=== PATIENT | male | born 1985 | race Caucasian/White ===

== ENCOUNTER 2016-05-23 13:47 | Emergency (ER) | payer MEDICAID, OTHER ==
[2016-05-23] MEDS ORDERED: CHLORPROMAZINE HCL 25 MG TABLET PO ONE (14:39)
--- NOTE | 2016-05-23 14:40 | ER Document Report ---
ED Medical Screen (RME) - General Chief Complaint: Chest Pain Stated Complaint: HICCUPS Notes: This 30-year-old male patient brought to emergency room for pickup since sometime yesterday. He is beginning to have some chest discomfort on the left side from old a hiccuping. He does have a past history of cyclic vomiting, psychiatric history, and is usually positive for marijuana when he is tested. I have greeted and performed a rapid initial assessment of this patient. A comprehensive ED assessment and evaluation of the patient, analysis of test results and completion of the medical decision making process will be conducted by additional ED providers. TRAVEL OUTSIDE OF THE [place] IN LAST 30 DAYS: No - Related Data Allergies/Adverse Reactions: amitriptyline HCl [From Elavil] Adverse Reaction (Severe, Verified 05/23/16 14: 04) Wakefulness for several days droperidol [Droperidol] Adverse Reaction (Intermediate, Verified 05/23/16 14:04) "makes me feel bad" metoclopramide HCl [From Reglan] Adverse Reaction (Verified 05/23/16 14:04) morphine [Morphine] Adverse Reaction (Verified 05/23/16 14:04) Past Medical History - Social History Family history: DM, Other - dementia grandmother Neurological Medical History: Reports: Hx Migraine. Denies: Hx Seizures Renal/ Medical History: Denies: Hx Peritoneal Dialysis GI Medical History: Reports: Hx Gastroesophageal Reflux Disease Musculoskeltal Medical History: Reports Hx Musculoskeletal Trauma - collar bone Psychiatric Medical History: Reports: Hx Anxiety, Hx Depression Traumatic Medical History: Reports: Hx Fractures - Immunizations Immunizations up to date: Yes Hx Diphtheria, Pertussis, Tetanus Vaccination: Yes Physical Exam - Vital signs Vitals: Temp Pulse Resp BP Pulse Ox 97.6 F 87 18 108/87 H 100 05/23/16 14:06 05/23/16 14:06 05/23/16 14:06 05/23/16 14:06 05/23/16 14:06 Course - Vital Signs Vital signs: Temp Pulse Resp BP Pulse Ox 98.2 F 88 18 180/116 H 100 05/23/16 15:26 05/23/16 15:26 05/23/16 15:26 05/23/16 15:26 05/23/16 15:26 Doctor's Discharge - Discharge Clinical Impression: Intractable hiccups Condition: Stable Disposition: HOME, SELF-CARE Additional Instructions: Hiccups: Hiccups are contractions of the diaphragm muscle. They usually occur without warning, but they may follow over-eating or drinking large amounts of soda. Hiccups are usually harmless. We don't know why some people have prolonged bouts of hiccups. Most of the time, they will eventually go away without treatment. Medication can be prescribed to help control hiccups. If hiccups persist, you'll need a medical work-up to see if there's any underlying illness. Return if there's any significant change, such as chest pain , abdominal pain, vomiting, or fever. TAKE THE MEDICATION PRESCRIBED. REST. FOLLOW UP WITH YOUR DOCTOR IF NOT IMPROVING. RETURN TO THE EMERGENCY ROOM IF ANY NEW OR WORSENING SYMPTOMS. Prescriptions: Benzonatate [Tessalon Perles 100 mg Capsule] 100 mg PO ASDIR PRN #20 capsule PRN Reason: Chlorpromazine HCl [Thorazine 25 Mg Tablet] 25 mg PO Q6 PRN #20 tablet PRN Reason:
[2016-05-23] MEDS ORDERED: MAG HYDROX/AL HYDROX/SIMETH SUSP 30 ML UDCUP PO ONE (14:47)
[2016-05-23] MEDS ORDERED: LIDOCAINE 2% VISCOUS SOLN 20 ML UDCUP PO ONE (14:47)
[2016-05-23] MEDS ORDERED: ONDANSETRON 4 MG TAB.RAPDIS PO ONE (15:05)
[2016-05-23 15:27] VITALS: BP 180/116
--- NOTE | 2016-05-23 20:07 | ER Document Report ---
ED General - General Chief Complaint: Chest Pain Stated Complaint: HICCUPS Information source: Patient, Parent, [facility] Records Notes: This 30-year-old male patient comes emergency room complaining of hiccups since yesterday. He has never had this problem before. He has been seen in the past for cyclical vomiting, he is always positive for marijuana when tested. TRAVEL OUTSIDE OF THE [place] IN LAST 30 DAYS: No - Related Data Allergies/Adverse Reactions: amitriptyline HCl [From Elavil] Adverse Reaction (Severe, Verified 05/23/16 14: 04) Wakefulness for several days droperidol [Droperidol] Adverse Reaction (Intermediate, Verified 05/23/16 14:04) "makes me feel bad" metoclopramide HCl [From Reglan] Adverse Reaction (Verified 05/23/16 14:04) morphine [Morphine] Adverse Reaction (Verified 05/23/16 14:04) Past Medical History - General Information source: Patient, Parent, [facility] Records - Social History Smoking Status: Never Smoker Cigarette use (# per day): No Chew tobacco use (# tins/day): No Smoking Education Provided: No Frequency of alcohol use: None Drug Abuse: Marijuana Occupation: unemployed Lives with: Parents Family History: None, Reviewed & Not Pertinent Patient has suicidal ideation: No Patient has homicidal ideation: No - Past Medical History Cardiac Medical History: Reports: None Pulmonary Medical History: Reports: None EENT Medical History: Reports: None Neurological Medical History: Reports: Hx Migraine Endocrine Medical History: Reports: None Renal/ Medical History: Reports: None GI Medical History: Reports: Hx Gastroesophageal Reflux Disease Musculoskeltal Medical History: Reports Hx Musculoskeletal Trauma - collar bone Psychiatric Medical History: Reports: Hx Anxiety, Hx Depression Traumatic Medical History: Reports: Hx Fractures Surgical Hx: Negative - Immunizations Immunizations up to date: Yes Hx Diphtheria, Pertussis, Tetanus Vaccination: Yes Review of Systems - Review of Systems Constitutional: No symptoms reported EENT: No symptoms reported Cardiovascular: No symptoms reported Respiratory: No symptoms reported Gastrointestinal: See HPI Genitourinary: No symptoms reported Musculoskeletal: No symptoms reported Skin: No symptoms reported Hematologic/Lymphatic: No symptoms reported Neurological/Psychological: No symptoms reported Physical Exam - Vital signs Vitals: Temp Pulse Resp BP Pulse Ox 97.6 F 87 18 108/87 H 100 05/23/16 14:06 05/23/16 14:06 05/23/16 14:06 05/23/16 14:06 05/23/16 14:06 Interpretation: Normal - General General appearance: Alert In distress: Mild - Patient is uncomfortable due to incessant hiccups - HEENT Head: Normocephalic, Atraumatic Eyes: Normal Pupils: PERRL - Respiratory Respiratory status: No respiratory distress Breath sounds: Normal - Cardiovascular Rhythm: Regular - Abdominal Inspection: Healed incision Bowel sounds: Normal Tenderness: Other - Some epigastric tenderness - Back Back: Normal - Extremities General upper extremity: Normal inspection General lower extremity: Normal inspection - Neurological Neuro grossly intact: Yes - Psychological Associated symptoms: Normal affect, Normal mood - Skin Skin Temperature: Warm Skin Moisture: Dry Skin Color: Normal Course - Re-evaluation Re-evalutation: 05/23/16 20:12 The patient's blood pressure was found to be quite elevated, however reviewing the prior records shows when he is in pain, vomiting, or in this case the hiccuping his blood pressure is always been quite high and then comes back down to normal and he becomes symptom-free. For this reason we will not treat the blood pressure today. He did become a little drowsy, hiccups did improve slightly after the by mouth Thorazine. He and the mother has elected to go home and we will try Thorazine and Tessalon Perles at home to control his hiccups. - Vital Signs Vital signs: Temp Pulse Resp BP Pulse Ox 98.2 F 88 18 180/116 H 100 05/23/16 15:26 05/23/16 15:26 05/23/16 15:26 05/23/16 15:26 05/23/16 15:26 Discharge - Discharge Clinical Impression: Intractable hiccups Condition: Stable Disposition: HOME, SELF-CARE Additional Instructions: Hiccups: Hiccups are contractions of the diaphragm muscle. They usually occur without warning, but they may follow over-eating or drinking large amounts of soda. Hiccups are usually harmless. We don't know why some people have prolonged bouts of hiccups. Most of the time, they will eventually go away without treatment. Medication can be prescribed to help control hiccups. If hiccups persist, you'll need a medical work-up to see if there's any underlying illness. Return if there's any significant change, such as chest pain , abdominal pain, vomiting, or fever. TAKE THE MEDICATION PRESCRIBED. REST. FOLLOW UP WITH YOUR DOCTOR IF NOT IMPROVING. RETURN TO THE EMERGENCY ROOM IF ANY NEW OR WORSENING SYMPTOMS. Prescriptions: Benzonatate [Tessalon Perles 100 mg Capsule] 100 mg PO ASDIR PRN #20 capsule PRN Reason: Chlorpromazine HCl [Thorazine 25 Mg Tablet] 25 mg PO Q6 PRN #20 tablet PRN Reason:
== END 2016-05-23 15:31 | disposition home or self-care (01) ==
LOC: ER 13:47
DX: R06.6 Hiccough (principal); R07.9 Chest pain, unspecified; F12.10 Cannabis abuse, uncomplicated
CPT/HCPCS: 99283; J3490 ×2; S0119

== ENCOUNTER 2016-06-11 19:41 | Emergency (ER) | payer SELFPAY ==
[2016-06-11 20:09] LABS: ABSOLUTE BASOPHILS # (AUTO) 0.1 10^3/uL (0.0-0.2); ABSOLUTE EOSINOPHILS # (AUTO) 0.1 10^3/uL (0.0-0.6); ABSOLUTE LYMPHOCYTES (AUTO) 1.7 10^3/uL (0.5-4.7); ABSOLUTE MONOCYTES (AUTO) 0.6 10^3/uL (0.1-1.4); ABSOLUTE NEUT (AUTO) 3.9 10^3/uL (1.7-8.2); BASOPHILS % (AUTO) 0.9 % (0-2); EOSINOPHILS % (AUTO) 1.7 % (0-6); HEMATOCRIT 43.1 % (37.9-51.0); HEMOGLOBIN 14.7 g/dL (13.5-17.0); LYMPHOCYTES % (AUTO) 26.6 % (13-45); MEAN CORPUSCULAR HGB CONC 34.1 g/dL (32.0-36.0); MEAN CORPUSCULAR VOLUME 88 fl (80-97); MONOCYTES % (AUTO) 9.7 % (3-13); RED CELL DISTRIBUTION WIDTH 12.9 % (11.5-14.0); SEGMENTED NEUTROPHILS % (AUTO) 61.1 % (42-78); WHITE BLOOD COUNT 6.3 10^3/uL (4.0-10.5)
--- NOTE | 2016-06-11 20:17 | ER Document Report ---
ED Psych Disorder / Suicide - General Chief Complaint: Overdose Stated Complaint: POSSIBLE OVERDOSE Time seen by provider: 20:16 Mode of Arrival: Medic Information source: Patient TRAVEL OUTSIDE OF THE [place] IN LAST 30 DAYS: No - HPI Patient complains to provider of: Overdose Onset: Yesterday Onset was: Cannot confirm Suicide Risk Factors: Depressed, Lack of social support, Male, Schizophrenia Situational problems related to: Daughter, Spouse Suicide Attempt Method: Overdose Normal mood: No Associated symptoms: Depressed, Flat affect, Tearful Notes: Patient is a 31-year-old male who was brought to the emergency room by EMS after parents called for overdose, patient reports that he overdosed on approximately 45 Ativan over the past 24 hours, he states it was an effort to try to sleep and that he didn't care how long he slept, he did acknowledge that it was a significant amount of Ativan to take for sleeping, he reports that yesterday evening around 11 PM he took 40 Ativan 1 mg tablets, he slept until approximately 5 AM when he took 5 more, when he came out of his room his mother apparently noticed that he was not acting right and called EMS, patient reports a history of schizophrenia and PTSD, states approximately 4 months ago he took his daughter somewhere, and was accused of kidnapping his daughter, he was put in residential for approximately one month, while awaiting trial and states that the charges were dropped, then he was placed in 2 other hospitals for at least one month period of time for treatment and at that point in time he was diagnosed with PTSD and schizophrenia - Related Data Allergies/Adverse Reactions: amitriptyline HCl [From Elavil] Adverse Reaction (Severe, Verified 05/23/16 14: 04) Wakefulness for several days droperidol [Droperidol] Adverse Reaction (Intermediate, Verified 05/23/16 14:04) "makes me feel bad" metoclopramide HCl [From Reglan] Adverse Reaction (Verified 05/23/16 14:04) morphine [Morphine] Adverse Reaction (Verified 05/23/16 14:04) Home Medications: Current Home Medications Benztropine Mesylate 1 mg PO BID 06/11/16 [History] Ibuprofen 600 mg PO BID PRN 06/11/16 [History] Lorazepam 1 mg PO BID PRN 06/11/16 [History] Omeprazole 20 mg PO QAM 06/11/16 [History] Trazodone HCl 50 mg PO QHS PRN 06/11/16 [History] Trazodone HCl 100 mg PO QHS PRN 06/11/16 [History] Past Medical History - General Information source: Patient - Social History Smoking Status: Never Smoker Family History: None, Reviewed & Not Pertinent Neurological Medical History: Reports: Hx Migraine. Denies: Hx Seizures Renal/ Medical History: Denies: Hx Peritoneal Dialysis GI Medical History: Reports: Hx Gastroesophageal Reflux Disease Musculoskeltal Medical History: Reports Hx Musculoskeletal Trauma - collar bone Psychiatric Medical History: Reports: Hx Anxiety, Hx Depression Traumatic Medical History: Reports: Hx Fractures - Immunizations Immunizations up to date: Yes Hx Diphtheria, Pertussis, Tetanus Vaccination: Yes Review of Systems - Review of Systems Constitutional: No symptoms reported EENT: No symptoms reported Cardiovascular: No symptoms reported Respiratory: No symptoms reported Gastrointestinal: No symptoms reported Genitourinary: No symptoms reported Male Genitourinary: No symptoms reported Musculoskeletal: No symptoms reported Skin: No symptoms reported Hematologic/Lymphatic: No symptoms reported Neurological/Psychological: See HPI -: Yes All other systems reviewed and negative Physical Exam - Vital signs Vitals: Pulse Ox 96 06/11/16 19:50 Interpretation: Normal - General General appearance: Appears well, Alert - HEENT Head: Normocephalic, Atraumatic Eyes: Normal Pupils: PERRL - Respiratory Respiratory status: No respiratory distress Chest status: Nontender Breath sounds: Normal Chest palpation: Normal - Cardiovascular Rhythm: Regular Heart sounds: Normal auscultation Murmur: No - Abdominal Inspection: Normal Distension: No distension Bowel sounds: Normal Tenderness: Nontender Organomegaly: No organomegaly - Back Back: Normal, Nontender - Extremities General upper extremity: Normal inspection, Nontender, Normal color, Normal ROM , Normal temperature General lower extremity: Normal inspection, Nontender, Normal color, Normal ROM , Normal temperature, Normal weight bearing. No: Fernandez's sign - Neurological Neuro grossly intact: Yes Cognition: Normal Orientation: AAOx4 Bartlett Coma Scale Eye Opening: Spontaneous Bartlett Coma Scale Verbal: Oriented Anderson Coma Scale Motor: Obeys Commands Bartlett Coma Scale Total: 15 Speech: Normal Motor strength normal: LUE, RUE, LLE, RLE Sensory: Normal - Psychological Associated symptoms: Depressed, Flat affect - Skin Skin Temperature: Warm Skin Moisture: Dry Skin Color: Normal Course - Re-evaluation Re-evalutation: 06/12/16 02:59 Patient with ongoing depression related to his current situation with his and daughter leaving him approximately 3 months ago, apparently he took anywhere from 45-63 1 mg Ativan over a 24-hour period, EMS reports 63, patient reports 45, either way patient has been placed on IVC paper work for further evaluation and treatment by mental health team, is otherwise medically stable for transfer or discharge, poison control has been contacted - Vital Signs Vital signs: Temp Pulse Resp BP Pulse Ox 18 107/75 96 06/12/16 02:01 06/12/16 02:00 06/11/16 22:01 - Laboratory Result Diagrams: 06/11/16 19:50 06/11/16 19:50 Laboratory results interpreted by me: 06/11/16 19:50 Calcium 10.5 H AST 16 L Salicylates < 1.0 L Acetaminophen < 10 L - EKG Interpretation by [place] EKG shows normal: Sinus rhythm Rate: Normal Rhythm: NSR Discharge - Discharge Clinical Impression: Drug overdose Qualifiers: Encounter type: initial encounter Injury intent: undetermined intent Qualified Code(s): T50.904A - Poisoning by unspecified drugs, medicaments and biological substances, undetermined, initial encounter Condition: Stable Disposition: PSYCH HOSP/UNIT
[2016-06-11 20:19] LABS: ALANINE AMINOTRANSFERASE 22 U/L (21-72); ALBUMIN 4.9 g/dL (3.5-5.0); ALKALINE PHOSPHATASE 52 U/L (38-126); ANION GAP 15 (5-19); ASPARTATE AMINO TRANSFERASE 16 U/L (17-59); BILIRUBIN,DIRECT 0.3 mg/dL (0.0-0.4); BILIRUBIN,TOTAL 0.8 mg/dL (0.2-1.3); BLOOD UREA NITROGEN 10 mg/dL (7-20); CALCIUM 10.5 mg/dL (8.4-10.2); CARBON DIOXIDE 27 mmol/L (22-30); CHLORIDE 102 mmol/L (98-107); CREATININE RESULT 1.07 mg/dL (0.52-1.25); GLUCOSE 107 mg/dL (75-110); SODIUM 143.6 mmol/L (137-145); TOTAL PROTEIN 7.7 g/dL (6.3-8.2)
[2016-06-11 20:21] LABS: ALCOHOL < 10 mg/dL (NONE DETECTED)
[2016-06-11 20:46] LABS: APPEARANCE,URINE SLIGHTLY-CLOUDY; BILIRUBIN,URINE NEGATIVE (NEGATIVE); GLUCOSE, URINE NEGATIVE (NEGATIVE); KETONES,URINE NEGATIVE (NEGATIVE); LEUKOCYTE ESTERASE,URINE NEGATIVE (NEGATIVE); NITRITE,URINE NEGATIVE (NEGATIVE); PROTEIN,URINE NEGATIVE (NEGATIVE); URINE SPECIFIC GRAVITY 1.011; UROBILINOGEN,URINE NEGATIVE mg/dL (<2.0)
[2016-06-11 21:05] LABS: URINE BARBITURATES SCREEN NEGATIVE; URINE METHADONE SCREEN NEGATIVE; URINE OPIATES LOW NEGATIVE; URINE PHENCYCLIDINE SCREEN NEGATIVE
--- NOTE | 2016-06-11 22:50 | EKG REPORT ---
SEVERITY:- NORMAL ECG - SINUS RHYTHM : Confirmed by: Lali Robles 11-Jun-2016 22:49:36
--- NOTE | 2016-06-12 10:31 | ER Document Report ---
Doctor's Note Notes: 06/12/16 10:30 Medical rounds: Chart reviewed and patient interviewed briefly. Patient denies any somatic complaints. Vital signs are satisfactory. Laboratory results satisfactory. He is alert, oriented, and cooperative. He is medically stable pending evaluation by psychosocial team.
[2016-06-12] MEDS ORDERED: LANSOPRAZOLE 30 MG TAB.RAP.DR PO ONE (20:35)
--- NOTE | 2016-06-12 21:31 | ER Document Report ---
Doctor's Note Notes: 06/12/16 21:29 Reevaluation: Patient is calm and cooperative, verbalizes no complaints. Earlier today he did complain to the nurse of some heartburn symptoms and was subsequently medicated with Prevacid. Chart has been reviewed. Vital signs are stable. Any signs of toxicity from overdose have long since resolved. The patient is considered medically stable for discharge or transfer, depending on recommendations by the psychosocial team.
[2016-06-12] MEDS ORDERED: CLONIDINE HCL 0.2 MG TABLET PO SCH (22:00)
[2016-06-12] MEDS ORDERED: VENLAFAXINE HCL 37.5 MG CAP.SR.24H PO SCH (22:00)
[2016-06-12] MEDS ORDERED: BUSPIRONE HCL 10 MG TABLET PO SCH (22:00)
[2016-06-13] MEDS ORDERED: BUSPIRONE HCL 10 MG TABLET PO SCH (08:00)
--- NOTE | 2016-06-13 09:32 | ER Document Report ---
Doctor's Note Notes: 06/13/16 09:31 Patient is easily aroused, without complaints at this time. This is a 31-year-old male initially brought into the emergency room as a potential overdose with benzodiazepines in the setting of depression. Patient is waiting for psychiatric evaluation. The patient's labs have been stable. The patient's vital signs of been stable.EKG shows normal sinus rhythm with a ventricular rate of 88, no acute ST-T wave changes.The plan is for transfer to [facility]. 06/13/16 09:32 06/13/16 10:55
[2016-06-13 11:52] VITALS: BP 114/71
== END 2016-06-13 11:59 ==
LOC: ER 19:41
DX: T42.4X1A Poisoning by benzodiazepines, accidental (unintentional), initial encounter (principal); F32.9 Major depressive disorder, single episode, unspecified; Z88.6 Allergy status to analgesic agent; F43.10 Post-traumatic stress disorder, unspecified; F20.9 Schizophrenia, unspecified; R12 Heartburn
CPT/HCPCS: 93005; 99285; 36415; 80307 ×4; 85025; 80053; 81001; 93010; J3490

== ENCOUNTER 2016-08-28 18:29 | Inpatient (IN) | payer SELFPAY ==
--- NOTE | 2016-08-28 18:44 | ER Document Report ---
ED General - General Mode of Arrival: Medic Information source: Patient, Emergency Med Personnel TRAVEL OUTSIDE OF THE [place] IN LAST 30 DAYS: No - HPI Onset: This afternoon - Refer to HPI notes <TORIN RIVER - Last Filed: 08/28/16 21:48> <TONY GATES - Last Filed: 08/29/16 04:27> - General Stated Complaint: POSSIBLE OVERDOSE Time Seen by Provider: 08/28/16 18:42 Notes: Patient is a 31-year-old male presenting to the emergency department for altered mental status. Patient's mother told EMS that the patient was acting funny and then she went and checked her medications and noticed she was missing 40 Xanax. Patient's mother gave him 1200 mg of charcoal around 1600 this afternoon and contacted EMS. Patient presents with slurred speech and unclear speech pattern. Patient is talking about "falling through a tunnel in the sand. " Patient states that he sees a psychiatrist. Patient states he has not had any food today. Patient did not call his psychiatrist medications he is taking. Patient does not answer questions very well and is a poor historian. ( TORIN RIVER) - Related Data Allergies/Adverse Reactions: amitriptyline HCl [From Elavil] Adverse Reaction (Severe, Verified 05/23/16 14: 04) Wakefulness for several days droperidol [Droperidol] Adverse Reaction (Intermediate, Verified 05/23/16 14:04) "makes me feel bad" metoclopramide HCl [From Reglan] Adverse Reaction (Verified 05/23/16 14:04) morphine [Morphine] Adverse Reaction (Verified 05/23/16 14:04) Home Medications: Current Home Medications Benztropine Mesylate 1 mg PO DAILY 08/28/16 [History] Ibuprofen 1 tab PO DAILY PRN 08/28/16 [History] Omeprazole 1 tab PO QAM 08/28/16 [History] Prazosin HCl 1 tab PO DAILY 08/28/16 [History] Past Medical History - General Information source: [facility] Records - Social History Smoking Status: Unknown if Ever Smoked Family History: None Neurological Medical History: Reports: Hx Migraine GI Medical History: Reports: Hx Gastroesophageal Reflux Disease Musculoskeltal Medical History: Reports Hx Musculoskeletal Trauma - collar bone Psychiatric Medical History: Reports: Hx Anxiety, Hx Depression, Hx Schizophrenia Traumatic Medical History: Reports: Hx Fractures Surgical Hx: Negative - Immunizations Immunizations up to date: Yes Hx Diphtheria, Pertussis, Tetanus Vaccination: Yes <PRADEEPGLADIS DUBONINE - Last Filed: 08/28/16 21:48> Review of Systems - Review of Systems Constitutional: No symptoms reported EENT: No symptoms reported Cardiovascular: No symptoms reported Respiratory: No symptoms reported Gastrointestinal: See HPI Genitourinary: No symptoms reported Male Genitourinary: No symptoms reported Musculoskeletal: No symptoms reported Skin: No symptoms reported Hematologic/Lymphatic: No symptoms reported Neurological/Psychological: See HPI -: Yes All other systems reviewed and negative <TORIN RIVER - Last Filed: 08/28/16 21:48> Physical Exam <TORIN RIVER - Last Filed: 08/28/16 21:48> <TONY GATES - Last Filed: 08/29/16 04:27> - Vital signs Vitals: Resp Pulse Ox 29 H 95 08/28/16 18:52 08/28/16 18:52 Resp Pulse Ox 29 H 95 08/28/16 18:52 08/28/16 18:52 (TORIN RIVER) - Notes Notes: GENERAL: Alert, clear speech pattern, patient does not make eye contact, blood noted on the bed sheet. Mild distress. HEAD: Normocephalic, atraumatic. EYES: Appear normal. Pupils are mid and dilated. ENT: Moist mucus membranes, tongue midline. NECK: Full range of motion. Supple. Trachea midline. LUNGS: Clear to auscultation bilaterally, no wheezes, rales, or rhonchi. No respiratory distress. HEART: Regular rate and rhythm. No murmurs, gallops, or rubs. ABDOMEN: Soft, non-tender. Non-distended. Normal bowel sounds. EXTREMITIES: Moves all 4 extremities spontaneously. Normal strength. No edema. NEUROLOGICAL: Alert and oriented x3. Unclear speech pattern. Slurred speech. No focal neurological deficits. PSYCH: Normal affect, normal mood. SKIN: Warm, dry, normal turgor. No rashes or lesions noted. . (TORIN RIVER) Course - Laboratory Result Diagrams: 08/28/16 19:09 08/28/16 19:09 - Consults Dr. Padilla Time consulted: 20:45 <TORIN RIVER - Last Filed: 08/28/16 21:48> - Laboratory Result Diagrams: 08/28/16 19:09 08/28/16 19:09 <TONY GATES - Last Filed: 08/29/16 04:27> - Vital Signs Vital signs: Temp Pulse Resp BP Pulse Ox 97.7 F 93 24 H 136/89 H 95 08/29/16 03:47 08/29/16 03:47 08/29/16 04:00 08/29/16 03:47 08/29/16 04:00 - Laboratory Laboratory results interpreted by me: 08/28/16 08/28/16 19:09 19:09 RBC 4.30 L Hgb 12.7 L Hct 37.7 L Eosinophils % 8.8 H Absolute Eosinophils 0.7 H BUN 5 L Salicylates < 1.0 L Acetaminophen < 10 L - Consults Dr. Padilla Reason for consultation: 08/28/16 20:[address] Padilla to discuss patient. He will be admitted to ICU. (TORIN RIVER) Critical Care Note - Critical Care Note Total time excluding time spent on procedures (mins): 65 <TOYN GATES - Last Filed: 08/29/16 04:27> Discharge <TORIN RIVER - Last Filed: 08/28/16 21:48> - Discharge Admitting Provider: Hospitalist Unit Admitted: ICU <TONY GATES - Last Filed: 08/29/16 04:27> - Discharge Clinical Impression: Acute drug overdose Qualifiers: Encounter type: initial encounter Injury intent: undetermined intent Qualified Code(s): T50.904A - Poisoning by unspecified drugs, medicaments and biological substances, undetermined, initial encounter Condition: Stable Disposition: ADMITTED INPATIENT Scribe Attestation: 08/28/16 20:50 I personally performed the services described in the documentation reviewed the documentation recorded by my scribe in my presence and it accurately and completely records my words and actions (TONY GATES) Scribe Documentation - Scribe Written by Gaurav:: Gaurav Lemus, 08/28/2016 21:47 acting as scribe for :: Drew <TORIN RIVER - Last Filed: 08/28/16 21:48>
[2016-08-28 19:23] LABS: ABSOLUTE EOSINOPHILS # (AUTO) 0.7 10^3/uL (0.0-0.6); ABSOLUTE LYMPHOCYTES (AUTO) 1.9 10^3/uL (0.5-4.7); ABSOLUTE MONOCYTES (AUTO) 0.8 10^3/uL (0.1-1.4); ABSOLUTE NEUT (AUTO) 4.1 10^3/uL (1.7-8.2); BASOPHILS % (AUTO) 0.5 % (0-2); EOSINOPHILS % (AUTO) 8.8 % (0-6); HEMATOCRIT 37.7 % (37.9-51.0); HEMOGLOBIN 12.7 g/dL (13.5-17.0); HGB HCT DIFFERENCE 0.4; LYMPHOCYTES % (AUTO) 24.9 % (13-45); MEAN CORPUSCULAR HEMOGLOBIN 29.5 pg (27.0-33.4); MEAN CORPUSCULAR HGB CONC 33.6 g/dL (32.0-36.0); MEAN CORPUSCULAR VOLUME 88 fl (80-97); MONOCYTES % (AUTO) 11.1 % (3-13); RED CELL DISTRIBUTION WIDTH 13.8 % (11.5-14.0); SEGMENTED NEUTROPHILS % (AUTO) 54.7 % (42-78); WHITE BLOOD COUNT 7.5 10^3/uL (4.0-10.5)
[2016-08-28 19:33] LABS: ALANINE AMINOTRANSFERASE 48 U/L (21-72); ALBUMIN 3.8 g/dL (3.5-5.0); ALKALINE PHOSPHATASE 77 U/L (38-126); ANION GAP 9 (5-19); ASPARTATE AMINO TRANSFERASE 30 U/L (17-59); BILIRUBIN,DIRECT 0.2 mg/dL (0.0-0.4); BILIRUBIN,TOTAL 0.4 mg/dL (0.2-1.3); BLOOD UREA NITROGEN 5 mg/dL (7-20); CALCIUM 9.5 mg/dL (8.4-10.2); CARBON DIOXIDE 27 mmol/L (22-30); CHLORIDE 105 mmol/L (98-107); CREATININE RESULT 0.98 mg/dL (0.52-1.25); GLUCOSE 83 mg/dL (75-110); POTASSIUM 4.3 mmol/L (3.6-5.0); SODIUM 141.2 mmol/L (137-145); TOTAL PROTEIN 6.3 g/dL (6.3-8.2)
[2016-08-28 19:35] LABS: ALCOHOL < 10 mg/dL (NONE DETECTED)
--- NOTE | 2016-08-28 19:38 | RADIOLOGY REPORT (SQ) ---
EXAM DESCRIPTION: CHEST PA/LAT COMPLETED DATE/TIME: 08/28/2016 7:24 pm REASON FOR STUDY: ams COMPARISON: None. EXAM PARAMETERS: NUMBER OF VIEWS: two views TECHNIQUE: Digital Frontal and Lateral radiographic views of the chest acquired. RADIATION DOSE: NA LIMITATIONS: none FINDINGS: LUNGS AND PLEURA: No opacities, masses or pneumothorax. No pleural effusion. MEDIASTINUM AND HILAR STRUCTURES: No masses or contour abnormalities. HEART AND VASCULAR STRUCTURES: Heart normal size. No evidence for failure. BONES: No acute findings. HARDWARE: None in the chest. OTHER: No other significant finding. IMPRESSION: NO SIGNIFICANT RADIOGRAPHIC FINDING IN THE CHEST. TECHNICAL DOCUMENTATION: JOB ID: [id number] [employer]- All Rights Reserved
--- NOTE | 2016-08-28 19:39 | RADIOLOGY REPORT (SQ) ---
EXAM DESCRIPTION: CT HEAD WITHOUT COMPLETED DATE/TIME: 08/28/2016 7:23 pm REASON FOR STUDY: ams COMPARISON: None. TECHNIQUE: Axial images acquired through the brain without intravenous contrast. Images reviewed wi th bone, brain and subdural windows. Images stored on PACS. All CT scanners at this facility use dose modulation, iterative reconstruction, and/or weight based d osing when appropriate to reduce radiation dose to as low as reasonably achievable (ALARA). [facility]: Dose Right [facility]: CareDose [facility]: Dose Right [facility]: Teradose 4D [facility]: Smart Sush.io RADIATION DOSE: Up-to-date CT equipment and radiation dose reduction techniques were employed. CTDIv ol: 64.6 mGy. DLP: 1163 mGy-cm. mGy. LIMITATIONS: None. FINDINGS: VENTRICLES: Normal size and contour. CEREBRUM: No masses. No hemorrhage. No midline shift. Normal knapp/white matter differentiation. N o evidence for acute infarction. CEREBELLUM: No masses. No hemorrhage. No alteration of density. No evidence for acute infarction. EXTRAAXIAL SPACES: No fluid collections. No masses. ORBITS AND GLOBE: No intra- or extraconal masses. Normal contour of globe without masses. CALVARIUM: No fracture. PARANASAL SINUSES: No fluid or mucosal thickening. SOFT TISSUES: No mass or hematoma. OTHER: No other significant finding. IMPRESSION: NORMAL BRAIN CT WITHOUT CONTRAST. TECHNICAL DOCUMENTATION: JOB ID: [id number] Quality ID # [id number]: Final reports with documentation of one or more dose reduction techniques (e.g., Au tomated exposure control, adjustment of the mA and/or kV according to patient size, use of iterative reconstruction technique) 2010 [employer]- All Rights Reserved
[2016-08-28 20:39] LABS: URINE BARBITURATES SCREEN NEGATIVE; URINE METHADONE SCREEN NEGATIVE; URINE OPIATES LOW NEGATIVE; URINE PHENCYCLIDINE SCREEN NEGATIVE
[2016-08-28 21:07] LABS: ADD ON TESTING BLD IN LAB ACKNOWLEDGE
[2016-08-28 21:19] LABS: APPEARANCE,URINE CLEAR; BILIRUBIN,URINE NEGATIVE (NEGATIVE); GLUCOSE, URINE NEGATIVE (NEGATIVE); KETONES,URINE NEGATIVE (NEGATIVE); LEUKOCYTE ESTERASE,URINE NEGATIVE (NEGATIVE); NITRITE,URINE NEGATIVE (NEGATIVE); PROTEIN,URINE NEGATIVE (NEGATIVE); URINE SPECIFIC GRAVITY 1.005; UROBILINOGEN,URINE NEGATIVE mg/dL (<2.0)
[2016-08-28 21:34] LABS: MAGNESIUM 1.8 mg/dL (1.6-2.3)
[2016-08-28] MEDS ORDERED: ACETAMINOPHEN 650 MG SUPP.RECT PR PRN (22:02)
[2016-08-28] MEDS ORDERED: GLUCAGON,HUMAN RECOMB 1 MG INJ SUBCUT PRN (22:02)
[2016-08-28] MEDS ORDERED: DEXTROSE 50%-WATER 25 GM/50 ML DISP.SYRIN IV PRN ×2 (22:02)
[2016-08-28] MEDS ORDERED: DEXTROSE 40% GEL 15 GM TUBE PO PRN ×2 (22:02)
[2016-08-28] MEDS ORDERED: PROMETHAZINE HCL 25 MG SUPP.RECT PR PRN (22:07)
--- NOTE | 2016-08-28 22:19 | PDOC H&P ---
History of Present Illness Admission Date/PCP: 08/28/16 21:10 [facility] Patient complains of: Confusion History of Present Illness: LISA MEJIAS is a 31 year old male, with reported underlying anxiety , depression, and schizoaffective disorder who presents to the emergency room for evaluation of above complaint. Patient has been discussed with emergency room physician who evaluated the patient. Patient is oriented only to the fact that he is in the hospital and is able to provide no history whatsoever in terms of acute or chronic events, review of systems, personal habits, family history, etc. he is a quite a rambling historian. Repeatedly talks about a daughter's birthday alliance party coming up in 2 days, and the fact that police poured beer on him. No friends or family are present. Old inpatient records are reviewed. According to emergency room physician notes, mother told EMS that patient was "acting funny." She went and checked her medications and noted she was missing #40 1 mg Xanax tablets. Mother gave him 1200 mg of charcoal at 4 PM this afternoon and contacted EMS. No further information available this point in time.. Laboratory results are listed in [facility] and are reviewed. X-ray summary results are listed below, with full report(s) reviewed. . EKG pending. Fairly lengthy telephone conversation with mother at 10:51 PM on the . Information is as follows: Mother does not think he took any other medication or substance. She states she normally controls his psychiatric medications herself. The above noted Xanax was her prescription. Social history/personal habits: . One daughter. Unemployed. Half pack of cigarettes per day. Occasional glass of wine. No illicit drug use. Allergies/adverse reactions are listed in [facility] and are reviewed. Home medications initially autopopulated into [employer] may not accurately reflect patient's true medications, dosages, and/or frequencies. marine services technician to reconcile medications. Medications discussed with the emergency room nurse. Mother states that patient also receives a monthly shot, stating he does not "do well," after getting the shot, stating that he sometimes sits around drooling. Patient also reportedly takes Klonopin. Unfortunately, patient cannot provide any information related to medications/ dosages/frequencies. Medications brought by EMS to ER: -Motrin 600 mg po prn -benztropine 1 mg po BID -Prazosin 2 mg po HS -Omeprazole 20 mg po daily REVIEW OF SYSTEMS: Constitutional: No fever or chills. Eyes: No vision complaints. ENT: No swallowing problems or complaints. Denies hearing loss. Pulmonary: No current complaints. Cardiovascular: No current complaints, including chest pain. Gastrointestinal: No current complaints, including nausea or vomiting. Skin: No current complaints, including rashes. Hematologic: Denies easy bruising. Neurologic: No current complaints, including numbness or tingling. Musculoskeletal: No current or chronic joint complaints, such as arthritis. Psychiatric: Anxiety and depression. No suicidal or homicidal ideation. Endocrine: No current complaints, including polyuria. Genitourinary: No current complaints, including dysuria. PHYSICAL EXAMINATION: 5 feet 6 inches tall. 81.6 kg. BMI 29.1 kg/m. Blood pressure 156/88. 94% saturation on room air. Pulse 95 and regular. Respirations are 22 and unlabored. Temperature not recorded on chart; skin feels normothermic. Slightly overweight otherwise well-nourished well-developed male appearing approximately his stated age. A bit drowsy, but maintaining airway well. Occasional slight slurring of speech. Somewhat anxious at times, although no aimee agitation. Rambling speech; see history and present illness. Skin is warm and dry. No grossly obvious evidence of rash in areas of skin examined. No subcutaneous nodules palpated. ENT: Hearing grossly normal to normal conversation. Tongue midline on protrusion pink and slightly tacky. Eyes: No scleral icterus. Pupils equal and reactive to light at 4 mm. [place] conjunctivae. No raccoon eyes. Neck is supple and nontender to gentle active range of motion and palpation. Midline trachea. No palpable thyroid nodule mass enlargement or tenderness. Lymphatic: No palpable cervical or clavicular nodes. Neck and lymphatic exams limited by patient body habitus. Psychiatric: Cannot be adequately evaluated due to his current status. See above comments. Lungs: Auscultation reveals clear and equal breath sounds bilaterally. No use of accessory respiratory muscles. Cardiovascular: Heart regular rate and rhythm, without gallop murmur or rub. No carotid or abdominal aortic bruits. No ankle or pedal edema. Faintly palpable posterior tibial pulses. Abdomen:soft slightly distended nontender with positive bowel sounds. Unable to adequately evaluate abdomen for masses or organomegaly due to distention. Extremities: Upper and lower extremities warm and dry. No calf tenderness to compression. No grossly obvious visual evidence of extremity swelling. Gentle manipulation of extremities fails to reveal any obvious evidence of injury or instability to involved major joints, although exam is somewhat restricted due to 4 point restraints. Neurologic: Patellar reflexes absent. Absent Babinski. Light touch cannot be adequately determined due to his current status.. Dorsiflexion and plantarflexion of feet 5 / 5 and symmetric. No rigidity. No ankle clonus. No nystagmus. Handgrip 5/5 and symmetric. Moves all 4 extremities grossly normally, with restrictions as noted due to the 4 point restraints. Past Medical History Past Medical History: Information from telephone conversation with mother. Cardiac Medical History: Reports: Hypertension - Elevated blood pressure without specific diagnosis of hypertension. Denies: Atrial Fibrillation, Congestive Heart Failure, DVT, Myocardial Infarction, Hyperlipidema, Pulmonary Embolism Pulmonary Medical History: Denies: Asthma, Chronic Obstructive Pulmonary Disease (COPD), Sleep Apnea EENT Medical History: Denies: Eyes, Ears, Throat Neurological Medical History: Reports: Migraine, Seizures - Questionable seizure during previous hospital stay; never on antiepileptic. Denies: Hemorrhagic CVA, Ischemic CVA Endocrine Medical History: Denies: Diabetes Mellitus Type 1, Diabetes Mellitus Type 2, Hyperthyroidism, Hypothyroidism Renal/ Medical History: Reports: None GI Medical History: Reports: Gastroesophageal Reflux Disease - Mild Denies: Cirrhosis, Hepatitis, Peptic Ulcer Disease Musculoskeltal Medical History: Denies: Arthritis Skin Medical History: Reports: None Psychiatric Medical History: Reports: Depression, General Anxiety Disorder, Schizoaffective Disorder, Tobacco Dependency Denies: Alcohol Dependency, Substance Abuse Infectious Medical History: Denies: Hepatitis B, Hepatitis C Past Surgical History Past Surgical History: Information from telephone conversation with mother. Past Surgical History: Reports: None Social History Information Source: Relative - Telephone conversation with mother, Emergency Med Personnel, [facility], 1928–1983 Records Lives with: Family Smoking Status: Unknown if Ever Smoked Frequency of Alcohol Use: Occasional Drugs: None Hx Prescription Drug Abuse: Yes - Suspected Xanax overdose - Advance Directive Resuscitation Status: Full Code Surrogate healthcare decision maker:: Mother Family History Family History: None Parental Family History Reviewed: No - Patient cannot provide any information related to same. Children Family History Reviewed: No - Patient cannot provide any information related to same. Sibling(s) Family History Reviewed.: No - Patient cannot provide any information related to same. Medication/Allergy Home Medications: Benztropine Mesylate 1 mg PO DAILY 08/28/16 Ibuprofen 1 tab PO DAILY PRN 08/28/16 Omeprazole 1 tab PO QAM 08/28/16 Prazosin HCl 1 tab PO DAILY 08/28/16 Allergies/Adverse Reactions: amitriptyline HCl [From Elavil] Adverse Reaction (Severe, Verified 05/23/16 14: 04) Wakefulness for several days droperidol [Droperidol] Adverse Reaction (Intermediate, Verified 05/23/16 14:04) "makes me feel bad" metoclopramide HCl [From Reglan] Adverse Reaction (Verified 05/23/16 14:04) morphine [Morphine] Adverse Reaction (Verified 05/23/16 14:04) Physical Exam Vital Signs: Temp Pulse Resp BP Pulse Ox 29 H 95 08/28/16 18:52 08/28/16 18:52 Intake & Output 08/27/16 08/28/16 08/29/16 00:59 00:59 00:59 Weight 81.647 kg Results Impressions: Chest X-Ray 08/28/16 18:43 IMPRESSION: NO SIGNIFICANT RADIOGRAPHIC FINDING IN THE CHEST. Head CT 08/28/16 18:44 IMPRESSION: NORMAL BRAIN CT WITHOUT CONTRAST. Assessment & Plan - Diagnosis (1) Acute drug overdose Qualifiers: Encounter type: initial encounter Injury intent: undetermined intent Qualified Code(s): T50.904A - Poisoning by unspecified drugs, medicaments and biological substances, undetermined, initial encounter Is this a current diagnosis for this admission?: YesPlan: Intensive care unit admission. IVC papers have been drawn up by emergency room physician. Psychiatric consult. Knee high SCDs for DVT prophylaxis, along with subcutaneous Lovenox. At 11:55 PM on the , I discussed the patient by phone with the on-call fast food supervisor at [place] poison control, Dr. Bran. She agreed with plans for supportive care. With patient on chronic benzodiazepine, should he become lethargic to the point of concern for airway control, she recommended proceeding with intubation rather than Romazicon, which could induce seizure activity. Time spent in evaluation and management of patient: 80 critical-care minutes. (2) Acute encephalopathy Is this a current diagnosis for this admission?: Yes (3) DVT prophylaxis Is this a current diagnosis for this admission?: Yes (4) Schizoaffective disorder Qualifiers: Schizoaffective disorder type: unspecified Qualified Code(s): F25.9 - Schizoaffective disorder, unspecified Is this a current diagnosis for this admission?: Yes - Inpatient Certification Based on my medical assessment, after consideration of the patient's comorbidities, presenting symptoms, or acuity I expect that the services needed warrant INPATIENT care.: Yes I certify that my determination is in accordance with my understanding of Medicare's requirements for reasonable and necessary INPATIENT services [42 CFR 412.3e].: Yes Medical Necessity: Significant Comorbidiites Make Outpatient Treatment Too Risky , Need Close Monitoring Due to Risk of Patient Decompensation, Need For Continuous Telemetry Monitoring, Risk of Diagnosis Which Will Require Inpatient Eval/Care/Monitoring Post Hospital Care: D/C or Transfer Summary
[2016-08-28 22:41] LABS: PROTHROMBIN TIME 13.1 SEC (11.4-15.4)
[2016-08-28 22:42] LABS: PARTIAL THROMBOPLASTIN TIME 30.8 SEC (23.5-35.8)
--- NOTE | 2016-08-28 22:46 | EKG REPORT ---
SEVERITY:- NORMAL ECG - SINUS RHYTHM NONSPECIFIC T CHANGES : Confirmed by: Lali Robles 28-Aug-2016 22:45:02
[2016-08-29 00:51] LABS: VENOUS BLOOD BASE EXCESS 3.4 mmol/L; VENOUS BLOOD HCO3 28.2 mmol/L (20-32); VENOUS BLOOD PCO2 43.4 mmHg (35-63); VENOUS BLOOD PH 7.43 (7.30-7.42)
[2016-08-29 06:40] LABS: ABSOLUTE EOSINOPHILS # (AUTO) 0.7 10^3/uL (0.0-0.6); ABSOLUTE LYMPHOCYTES (AUTO) 1.6 10^3/uL (0.5-4.7); ABSOLUTE MONOCYTES (AUTO) 0.6 10^3/uL (0.1-1.4); BASOPHILS % (AUTO) 0.4 % (0-2); EOSINOPHILS % (AUTO) 9.9 % (0-6); HEMATOCRIT 39.6 % (37.9-51.0); HEMOGLOBIN 13.1 g/dL (13.5-17.0); HGB HCT DIFFERENCE -0.3; LYMPHOCYTES % (AUTO) 23.5 % (13-45); MEAN CORPUSCULAR HEMOGLOBIN 29.4 pg (27.0-33.4); MEAN CORPUSCULAR HGB CONC 33.1 g/dL (32.0-36.0); MEAN CORPUSCULAR VOLUME 89 fl (80-97); RED BLOOD COUNT 4.45 10^6/uL (4.35-5.55); RED CELL DISTRIBUTION WIDTH 13.6 % (11.5-14.0); SEGMENTED NEUTROPHILS % (AUTO) 58.2 % (42-78); WHITE BLOOD COUNT 6.9 10^3/uL (4.0-10.5)
[2016-08-29 07:06] LABS: ANION GAP 9 (5-19); BLOOD UREA NITROGEN 6 mg/dL (7-20); CALCIUM 9.2 mg/dL (8.4-10.2); CARBON DIOXIDE 27 mmol/L (22-30); CHLORIDE 106 mmol/L (98-107); CREATININE RESULT 0.86 mg/dL (0.52-1.25); GLUCOSE 80 mg/dL (75-110); POTASSIUM 3.9 mmol/L (3.6-5.0); SODIUM 142.4 mmol/L (137-145)
--- NOTE | 2016-08-29 07:45 | EKG REPORT ---
SEVERITY:- NORMAL ECG - SINUS RHYTHM : Confirmed by: Lali Robles 29-Aug-2016 07:44:52
[2016-08-29] MEDS: NORMAL SALINE 1000 ML 1,000 ML IV PRN ×3 (08:25→21:02)
[2016-08-29] MEDS: ENOXAPARIN SODIUM INJ 40 MG/0.4 ML DISP.SYRIN SUBCUT SCH (09:18)
[2016-08-29] MEDS ORDERED: HALOPERIDOL LACTATE INJ 5 MG/1 ML VIAL IV PRN (10:09)
--- NOTE | 2016-08-29 11:19 | PDOC PROGRESS REPORT ---
Subjective Progress Note for:: 08/29/16 Subjective:: Patient is confused and encephalopathic secondary to Xanax overdose Physical Exam Vital Signs: Temp Pulse Resp BP Pulse Ox 97.3 F 110 H 16 138/95 H 97 08/29/16 11:00 08/29/16 10:00 08/29/16 11:00 08/29/16 10:48 08/29/16 11:00 Intake & Output 08/28/16 08/29/16 08/30/16 06:59 06:59 06:59 Output Total 1325 Balance -1325 Weight 86.7 kg General appearance: PRESENT: no acute distress Eye exam: PRESENT: conjunctiva pink. ABSENT: scleral icterus Mouth exam: PRESENT: moist, tongue midline Neck exam: ABSENT: JVD Respiratory exam: PRESENT: clear to auscultation riky. ABSENT: rales, rhonchi, wheezes Cardiovascular exam: PRESENT: RRR. ABSENT: diastolic murmur, rubs, systolic murmur GI/Abdominal exam: PRESENT: normal bowel sounds, soft. ABSENT: distended, guarding, mass, organolmegaly, rebound, tenderness Extremities exam: ABSENT: calf tenderness, clubbing, pedal edema Neurological exam: PRESENT: alert, other - Moves all 4 extremities but will not cooperate for neurological exam Psychiatric exam: PRESENT: agitated Skin exam: PRESENT: dry, intact, warm. ABSENT: cyanosis, rash Results Laboratory Results: 08/29/16 06:21 08/29/16 06:21 08/29/16 08/29/16 08/29/16 00:42 06:21 06:21 WBC 6.9 RBC 4.45 Hgb 13.1 L Hct 39.6 MCV 89 MCH 29.4 MCHC 33.1 RDW 13.6 Plt Count 304 Seg Neutrophils % 58.2 Lymphocytes % 23.5 Monocytes % 8.0 Eosinophils % 9.9 H Basophils % 0.4 Absolute Neutrophils 4.0 Absolute Lymphocytes 1.6 Absolute Monocytes 0.6 Absolute Eosinophils 0.7 H Absolute Basophils 0.0 VBG pH 7.43 H VBG pCO2 43.4 VBG HCO3 28.2 VBG Base Excess 3.4 Sodium 142.4 Potassium 3.9 Chloride 106 Carbon Dioxide 27 Anion Gap 9 BUN 6 L Creatinine 0.86 Est GFR ( Amer) > 60 Est GFR (Non-Af Amer) > 60 Glucose 80 Calcium 9.2 Impressions: Chest X-Ray 08/28/16 18:43 IMPRESSION: NO SIGNIFICANT RADIOGRAPHIC FINDING IN THE CHEST. Head CT 08/28/16 18:44 IMPRESSION: NORMAL BRAIN CT WITHOUT CONTRAST. Assessment & Plan - Diagnosis (1) Acute encephalopathy Is this a current diagnosis for this admission?: YesPlan: Secondary to drug overdose. Will monitor in the ICU. No evidence for respiratory compromise at this time (2) Acute drug overdose Qualifiers: Encounter type: initial encounter Injury intent: undetermined intent Qualified Code(s): T50.904A - Poisoning by unspecified drugs, medicaments and biological substances, undetermined, initial encounter Is this a current diagnosis for this admission?: YesPlan: Patient took benzodiazepines. Will monitor closely in the ICU. (3) Schizoaffective disorder Qualifiers: Schizoaffective disorder type: unspecified Qualified Code(s): F25.9 - Schizoaffective disorder, unspecified Is this a current diagnosis for this admission?: YesPlan: Haldol as needed for agitation. - Time Time Spent with patient: 25-34 minutes - Inpatient Certification Medical Necessity: Need Close Monitoring Due to Risk of Patient Decompensation
--- NOTE | 2016-08-29 16:50 | PSYCHOLOGICAL NOTE ---
Psych Note - Psych Note Psych Note: Patient is a 31 year old male who [facility] due to overdose of Xanax with unknown intent. Patient today remains altered with slurred speech. Patient does engage in conversation, but mostly makes nonsensical statements or it is difficult to understand. Patient' s sister is bedside and asked questions in regards to drug treatment, aftercare , and the involuntary commitment process. Answered all questions to the best of my ability. Sister verbalized she understood that she could not force the patient to go to drug treatment and or rehab. Patient was argumentative during this portion of the conversation and stated he was not attempting suicide. Due to patient's altered status, patient will be reevaluated at a later time. Will track.
[2016-08-30 04:38] LABS: ABSOLUTE EOSINOPHILS # (AUTO) 0.7 10^3/uL (0.0-0.6); ABSOLUTE LYMPHOCYTES (AUTO) 1.6 10^3/uL (0.5-4.7); ABSOLUTE MONOCYTES (AUTO) 0.5 10^3/uL (0.1-1.4); ABSOLUTE NEUT (AUTO) 3.8 10^3/uL (1.7-8.2); BASOPHILS % (AUTO) 0.7 % (0-2); EOSINOPHILS % (AUTO) 10.3 % (0-6); HEMATOCRIT 38.5 % (37.9-51.0); HEMOGLOBIN 12.8 g/dL (13.5-17.0); HGB HCT DIFFERENCE -0.1; LYMPHOCYTES % (AUTO) 24.2 % (13-45); MEAN CORPUSCULAR HEMOGLOBIN 29.2 pg (27.0-33.4); MEAN CORPUSCULAR HGB CONC 33.2 g/dL (32.0-36.0); MEAN CORPUSCULAR VOLUME 88 fl (80-97); MONOCYTES % (AUTO) 7.1 % (3-13); RED BLOOD COUNT 4.38 10^6/uL (4.35-5.55); RED CELL DISTRIBUTION WIDTH 13.5 % (11.5-14.0); SEGMENTED NEUTROPHILS % (AUTO) 57.7 % (42-78); WHITE BLOOD COUNT 6.5 10^3/uL (4.0-10.5)
[2016-08-30 04:55] LABS: ANION GAP 7 (5-19); BLOOD UREA NITROGEN 6 mg/dL (7-20); CALCIUM 8.7 mg/dL (8.4-10.2); CARBON DIOXIDE 25 mmol/L (22-30); CHLORIDE 109 mmol/L (98-107); CREATININE RESULT 0.96 mg/dL (0.52-1.25); GLUCOSE 74 mg/dL (75-110); POTASSIUM 4.1 mmol/L (3.6-5.0); SODIUM 140.6 mmol/L (137-145)
[2016-08-30] MEDS: NORMAL SALINE 1000 ML 1,000 ML IV PRN (05:34)
[2016-08-30] MEDS: ENOXAPARIN SODIUM INJ 40 MG/0.4 ML DISP.SYRIN SUBCUT SCH (10:07)
--- NOTE | 2016-08-30 10:54 | PDOC PROGRESS REPORT ---
Subjective Progress Note for:: 08/30/16 Subjective:: Is alert and oriented this morning. He was violent towards nursing staff last night and was put in restraints Physical Exam Vital Signs: Temp Pulse Resp BP Pulse Ox 97.0 F 86 20 142/85 H 97 08/30/16 08:15 08/30/16 08:00 08/30/16 10:15 08/30/16 09:48 08/30/16 10:15 Intake & Output 08/29/16 08/30/16 08/31/16 06:59 06:59 06:59 Intake Total 2616 Output Total 3185 30 Balance -569 -30 Weight 86.7 kg 85.7 kg General appearance: PRESENT: no acute distress Eye exam: PRESENT: conjunctiva pink. ABSENT: scleral icterus Mouth exam: PRESENT: moist, tongue midline Neck exam: ABSENT: JVD Respiratory exam: PRESENT: clear to auscultation riky. ABSENT: rales, rhonchi, wheezes Cardiovascular exam: PRESENT: RRR. ABSENT: diastolic murmur, rubs, systolic murmur GI/Abdominal exam: PRESENT: normal bowel sounds, soft. ABSENT: distended, guarding, mass, organolmegaly, rebound, tenderness Extremities exam: ABSENT: calf tenderness, clubbing, pedal edema Neurological exam: PRESENT: alert, awake, oriented to person, oriented to place , oriented to time, oriented to situation, CN II-XII grossly intact. ABSENT: motor sensory deficit Psychiatric exam: PRESENT: appropriate affect Skin exam: PRESENT: dry, intact, warm. ABSENT: cyanosis, rash Results Laboratory Results: 08/30/16 04:09 08/30/16 04:09 08/30/16 08/30/16 04:09 04:09 WBC 6.5 RBC 4.38 Hgb 12.8 L Hct 38.5 MCV 88 MCH 29.2 MCHC 33.2 RDW 13.5 Plt Count 300 Seg Neutrophils % 57.7 Lymphocytes % 24.2 Monocytes % 7.1 Eosinophils % 10.3 H Basophils % 0.7 Absolute Neutrophils 3.8 Absolute Lymphocytes 1.6 Absolute Monocytes 0.5 Absolute Eosinophils 0.7 H Absolute Basophils 0.0 Sodium 140.6 Potassium 4.1 Chloride 109 H Carbon Dioxide 25 Anion Gap 7 BUN 6 L Creatinine 0.96 Est GFR ( Amer) > 60 Est GFR (Non-Af Amer) > 60 Glucose 74 L Calcium 8.7 Impressions: Chest X-Ray 08/28/16 18:43 IMPRESSION: NO SIGNIFICANT RADIOGRAPHIC FINDING IN THE CHEST. Head CT 08/28/16 18:44 IMPRESSION: NORMAL BRAIN CT WITHOUT CONTRAST. Assessment & Plan - Diagnosis (1) Acute encephalopathy Is this a current diagnosis for this admission?: YesPlan: Secondary to drug overdose. Patient is alert and oriented this morning. He denies any suicidal ideation (2) Acute drug overdose Qualifiers: Encounter type: initial encounter Injury intent: undetermined intent Qualified Code(s): T50.904A - Poisoning by unspecified drugs, medicaments and biological substances, undetermined, initial encounter Is this a current diagnosis for this admission?: YesPlan: Patient took benzodiazepines. Any suicidal ideation. He reports it was an accidental overdose. Will await psychiatry evaluation to see whether or not the IVC can be rescinded. (3) Schizoaffective disorder Qualifiers: Schizoaffective disorder type: unspecified Qualified Code(s): F25.9 - Schizoaffective disorder, unspecified Is this a current diagnosis for this admission?: YesPlan: Haldol as needed for agitation. - Time Time Spent with patient: 25-34 minutes - Inpatient Certification Medical Necessity: Need Close Monitoring Due to Risk of Patient Decompensation
[2016-08-30 17:19] VITALS: BP 128/92
--- NOTE | 2016-08-30 17:34 | PDOC DISCHARGE SUMMARY ---
General - Admit/Disc Date/PCP Admission Date/Primary Care Provider: 08/28/16 22:02 Discharge Date: 08/30/16 - Discharge Diagnosis (1) Acute encephalopathy Is this a current diagnosis for this admission?: YesSummary: Secondary to taking extra benzodiazepines. (2) Acute drug overdose Is this a current diagnosis for this admission?: YesSummary: Has no suicidal ideation. He was initially IVC'd however that has been rescinded as he is not at risk. (3) Schizoaffective disorder Is this a current diagnosis for this admission?: Yes - Additional Information Resuscitation Status: Full Code Discharge Diet: Regular Discharge Activity: Activity As Tolerated Home Medications: Benztropine Mesylate 1 mg PO DAILY 08/28/16 Ibuprofen 1 tab PO DAILY PRN 08/28/16 Omeprazole 1 tab PO QAM 08/28/16 Prazosin HCl 1 tab PO DAILY 08/28/16 History of Present Illness History of Present Illness: LISA MEJIAS is a 31 year old male with schizoaffective disorder and has been followed at the [facility]. He presented with confusion. By report he had taken extra Xanax. The patient's mother gave him charcoal called EMS. When he presented to emergency room he was confused and combative. Patient was admitted for presumed benzodiazepine overdose. He was involuntarily committed because it was not sure whether this was a suicide attempt or just substance abuse. Hospital Course Hospital Course: 31-year-old male presented with altered mental status secondary to taking extra benzodiazepines. Patient was involuntarily committed and admitted to the intensive care unit. He was monitored and had improvement in his mental status and was reevaluated by psychiatry felt he no longer met criteria for involuntary commitment and this was rescinded. He is discharged home and instructed to follow-up with his primary care doctor and to stop using benzodiazepines. Physical Exam Vital Signs: Temp Pulse Resp BP Pulse Ox 97.9 F 88 16 134/94 H 98 08/30/16 17:12 08/30/16 17:12 08/30/16 17:12 08/30/16 17:12 08/30/16 17:12 Intake & Output 08/29/16 08/30/16 08/31/16 06:59 06:59 06:59 Intake Total 2616 Output Total 3185 30 Balance -569 -30 Weight 86.7 kg 85.7 kg General appearance: PRESENT: no acute distress Eye exam: PRESENT: conjunctiva pink. ABSENT: scleral icterus Mouth exam: PRESENT: moist, tongue midline Neck exam: ABSENT: JVD Respiratory exam: PRESENT: clear to auscultation riky. ABSENT: rales, rhonchi, wheezes Cardiovascular exam: PRESENT: RRR. ABSENT: diastolic murmur, rubs, systolic murmur GI/Abdominal exam: PRESENT: normal bowel sounds, soft. ABSENT: distended, guarding, mass, organolmegaly, rebound, tenderness Extremities exam: ABSENT: calf tenderness, clubbing, pedal edema Neurological exam: PRESENT: alert, awake, oriented to person, oriented to place , oriented to time, oriented to situation, CN II-XII grossly intact. ABSENT: motor sensory deficit Psychiatric exam: PRESENT: appropriate affect Skin exam: PRESENT: dry, intact, warm. ABSENT: cyanosis, rash Results Laboratory Results: 08/30/16 04:09 08/30/16 04:09 08/30/16 08/30/16 04:09 04:09 WBC 6.5 RBC 4.38 Hgb 12.8 L Hct 38.5 MCV 88 MCH 29.2 MCHC 33.2 RDW 13.5 Plt Count 300 Seg Neutrophils % 57.7 Lymphocytes % 24.2 Monocytes % 7.1 Eosinophils % 10.3 H Basophils % 0.7 Absolute Neutrophils 3.8 Absolute Lymphocytes 1.6 Absolute Monocytes 0.5 Absolute Eosinophils 0.7 H Absolute Basophils 0.0 Sodium 140.6 Potassium 4.1 Chloride 109 H Carbon Dioxide 25 Anion Gap 7 BUN 6 L Creatinine 0.96 Est GFR ( Amer) > 60 Est GFR (Non-Af Amer) > 60 Glucose 74 L Calcium 8.7 Impressions: Chest X-Ray 08/28/16 18:43 IMPRESSION: NO SIGNIFICANT RADIOGRAPHIC FINDING IN THE CHEST. Head CT 08/28/16 18:44 IMPRESSION: NORMAL BRAIN CT WITHOUT CONTRAST. Qualifiers PATEINT BEING DISCHARGED WITH ANY OF THE FOLLOWING DIAGNOSIS?: No Plan Discharge Plan: Patient is discharged to home. Will follow-up with primary care in 1 week. Time Spent: Less than 30 Minutes
--- NOTE | 2016-08-31 09:55 | PSYCHOLOGICAL NOTE ---
Psych Note - Psych Note Psych Note: Patient is a 31 year old male who has been admitted to [facility] in ICU due to overdose of Xanax with unknown intent. Patient states he took 2 and a half pills of his ativan last night. Patient states he was also drinking alcohol. Patient denies taking xanxa stating "that is my mom's prescription and she does not let me have any." He continued to stat3e he does not know why he stated he took 50 pills because he only had 30 in the bottle so it would not have been possible. Patient states his mom tries to go to he mailbox before him to get all the medications they receive. he states she does this because she "says I need to try and make them last." Patient states he receives serves for mental health through the [place] and has been having a difficult time lately. Patient states he recently went through the end of his 9 year marriage, lost his 3 kids, 2 cars, and his house with a gate. Patient states he also went to senior living recently. Patient states he [facility] Patient states he also receives an Invega shot. Patient denies wanting to hurt himself. Patient is alert and orientated to person, place, time and circumstance. mood is euthymic with congruent affect. patient denies suicidal and homicidal ideation. No delusions are noted. Patient denies auditory and visual hallucinations; patient is not demonstrating any behaviours congruent with responding to internal stimuli. eye contact was well maintained. Thought process is organized and linear. Conversational speech is within normal rate tone and prosody. Intellectual abilities appear to be average range. attention adn concentration are good. Insight judgment and impulse control are poor due to substance abuse. 295.70 (F25.1) Schizoaffective disorder;depressive type per history provided by patient 304.90 (F19.20) Benzodiazipine abuse; severe Impression/plan: patient is recommended for rescind of IVC and is considered psychiatrically cleared. Patient does not meet IVC criteria per [place] GS 122C. Patient denies suicidal ideation or intent to harm. Patient is demonstrating denial with his issue was substance abuse. Patient is recommended for outpatient substance abuse treatment and to [facility] Taylor was consult on the care and management of this patient.
== END 2016-08-30 18:36 | disposition home or self-care (01) | DRG 917 ==
LOC: ER 18:29 → EH 21:10 → UNDOADMIN 21:10 → EH 22:02 → ICU 08-29
PROVIDERS: ADMIT Family Medicine; ATTEND Family Medicine
DX: T42.4X4A Poisoning by benzodiazepines, undetermined, initial encounter (principal); G92 Toxic encephalopathy; F19.20 Other psychoactive substance dependence, uncomplicated; F25.9 Schizoaffective disorder, unspecified; F41.1 Generalized anxiety disorder; F32.9 Major depressive disorder, single episode, unspecified; F17.210 Nicotine dependence, cigarettes, uncomplicated; I10 Essential (primary) hypertension; G43.909 Migraine, unspecified, not intractable, without status migrainosus; K21.9 Gastro-esophageal reflux disease without esophagitis; Z78.1 Physical restraint status; Z79.899 Other long term (current) drug therapy; Z88.8 Allergy status to other drugs, medicaments and biological substances; Z88.6 Allergy status to analgesic agent
CPT/HCPCS: 36415; 70450; 71020; 80048; 80053; 80307; 81001; 82803; 83735; 84443; 84484; 85025; 85610; 85730; 93005; 93010; 99291; J1630; J1650; J3490; J7030

== ENCOUNTER 2016-09-27 10:12 | Emergency (ER) | payer SELFPAY ==
[2016-09-27] MEDS ORDERED: LORAZEPAM INJ 2 MG/1 ML VIAL IV ONE (10:32)
[2016-09-27] MEDS ORDERED: ACETAMINOPHEN 325 MG TABLET PO ONE (10:32)
[2016-09-27 10:44] LABS: ABSOLUTE BASOPHILS # (AUTO) 0.1 10^3/uL (0.0-0.2); ABSOLUTE EOSINOPHILS # (AUTO) 0.1 10^3/uL (0.0-0.6); ABSOLUTE MONOCYTES (AUTO) 0.8 10^3/uL (0.1-1.4); ABSOLUTE NEUT (AUTO) 3.4 10^3/uL (1.7-8.2); EOSINOPHILS % (AUTO) 0.9 % (0-6); HEMATOCRIT 41.4 % (37.9-51.0); HEMOGLOBIN 14.5 g/dL (13.5-17.0); HGB HCT DIFFERENCE 2.1; LYMPHOCYTES % (AUTO) 31.1 % (13-45); MEAN CORPUSCULAR HEMOGLOBIN 30.7 pg (27.0-33.4); MEAN CORPUSCULAR HGB CONC 35.1 g/dL (32.0-36.0); MEAN CORPUSCULAR VOLUME 87 fl (80-97); MONOCYTES % (AUTO) 12.8 % (3-13); RED BLOOD COUNT 4.73 10^6/uL (4.35-5.55); RED CELL DISTRIBUTION WIDTH 13.5 % (11.5-14.0); SEGMENTED NEUTROPHILS % (AUTO) 54.2 % (42-78); WHITE BLOOD COUNT 6.4 10^3/uL (4.0-10.5)
--- NOTE | 2016-09-27 11:00 | ER Document Report ---
ED GI/ - General Chief Complaint: Abdominal Pain Stated Complaint: ABDOMINAL PAIN Time Seen by Provider: 09/27/16 10:21 Notes: This patient is complaining of abdominal pains since night before last. Describes his pain as being "throbbing" and present for the last 2 nights. Last night, he also had a very large difficult to pass honk of stool that got stuck as he was trying to pass it and eventually he had to use his finger to remove the stool. He said it was like a piece of "hard alexia". He had a very small bowel movement this morning. Did not see any blood rectally. Has not had any vomiting or diarrhea. Denies any UTI symptoms. No significant cough or shortness of breath. Denies any fever. No history of any abdominal surgeries. Has had injections of Botox in his esophagus in the past because of difficulty passing food and pain. Patient has a history of anxiety and GERD. He is subject to a different sort of abdominal pains which were always relieved by sitting in the shower for long period of time. He was told that these were panic induced abdominal pains. He has been diagnosed as having schizophrenia and started on monthly injections of Invega earlier this year and since that medication was started, he has no longer had those pains that he was experiencing in the past that were attributed to panic origin. He did receive the injection of in [place] this month , September. Patient says that this pain he is having in his abdomen is different than those pains he used to have. TRAVEL OUTSIDE OF THE [place] IN LAST 30 DAYS: No - Related Data Allergies/Adverse Reactions: amitriptyline HCl [From Elavil] Adverse Reaction (Severe, Verified 05/23/16 14: 04) Wakefulness for several days droperidol [Droperidol] Adverse Reaction (Intermediate, Verified 05/23/16 14:04) "makes me feel bad" metoclopramide HCl [From Reglan] Adverse Reaction (Verified 05/23/16 14:04) morphine [Morphine] Adverse Reaction (Verified 05/23/16 14:04) Past Medical History - Social History Smoking Status: Current Every Day Smoker Family History: None, Reviewed & Not Pertinent Neurological Medical History: Reports: Hx Migraine, Hx Seizures - Questionable seizure during previous hospital stay; never on antiepileptic. GI Medical History: Reports: Hx Gastroesophageal Reflux Disease - Mild Musculoskeltal Medical History: Reports Hx Musculoskeletal Trauma - collar bone Psychiatric Medical History: Reports: Hx Anxiety, Hx Depression, Hx Schizoaffective Disorder, Hx Schizophrenia Traumatic Medical History: Reports: Hx Fractures Surgical Hx: Negative - Immunizations Immunizations up to date: Yes Hx Diphtheria, Pertussis, Tetanus Vaccination: Yes Review of Systems - Review of Systems Notes: REVIEW OF SYSTEMS: CONSTITUTIONAL : Denies fever. EENT: Denies eye, ear, nose or mouth or throat pain or other symptoms. CARDIOVASCULAR: Denies chest pain. RESPIRATORY: Denies cough, chest congestion, or shortness of breath. GASTROINTESTINAL: See HPI. GENITOURINARY: Denies difficulty or painful urinating, urinary frequency, blood in urine. MUSCULOSKELETAL: Denies back or neck pain. Denies joint pain or swelling. SKIN: Denies rash or skin lesions. NEUROLOGICAL: Denies LOC or altered mental status. Denies headache. Denies sensory loss or motor deficits. ALL OTHER SYSTEMS REVIEWED AND NEGATIVE. Physical Exam - Vital signs Vitals: Temp Pulse Resp BP Pulse Ox 97.8 F 94 17 126/80 H 99 09/27/16 10:17 09/27/16 10:17 09/27/16 10:17 09/27/16 10:17 09/27/16 10:17 Interpretation: Normal - Notes Notes: PHYSICAL EXAMINATION: GENERAL: Well-appearing, in no acute distress. However, patient is walking around the bed holding his abdomen and moaning rather continuously throughout his stay. Vital signs are all normal. HEAD: Atraumatic, normocephalic. ENT: oropharynx clear without exudates. Moist mucous membranes. NECK: Normal range of motion, supple. LUNGS: Breath sounds clear and equal bilaterally. HEART: Regular rate and rhythm without murmurs. ABDOMEN: Soft, tender mostly periumbilical, some in the epigastrium. No guarding or rebound. No abdominal masses felt. BACK: No tenderness throughout entire back. EXTREMITIES: Normal range of motion without pain. NEUROLOGICAL: Normal speech, normal gait. Normal sensory, motor, and reflex exams. Awake, alert, and oriented x3. Cranial nerves normal. PSYCH: Normal mood, normal affect. SKIN: Warm, dry, no rashes. Course - Vital Signs Vital signs: Temp Pulse Resp BP Pulse Ox 98.2 F 85 16 131/92 H 100 09/27/16 15:13 09/27/16 15:13 09/27/16 15:13 09/27/16 15:13 09/27/16 15:13 - Laboratory Result Diagrams: 09/27/16 10:27 09/27/16 11:08 Laboratory results interpreted by me: 09/27/16 09/27/16 11:08 11:08 Potassium 3.4 L Chloride 93 L Carbon Dioxide 32 H Creatinine 1.27 H ALT 18 L Urine Protein 30 H - Diagnostic Test Radiology reviewed: Image reviewed, Reports reviewed - CT abdomen and pelvis with oral and IV contrast shows hiatal hernia with gastroesophageal reflux. No other abnormalities. Discharge - Discharge Clinical Impression: Hiatal hernia with GERD Condition: Stable Disposition: HOME, SELF-CARE Additional Instructions: Reflux Disease (GERD) Gastro-Esophageal Reflux Disease (GERD) is caused by stomach acid refluxing back up into the esophagus. The valve at the end of the esophagus may be weak. This is common in persons with a hiatal hernia. GERD symptoms can include indigestion, chest pain, heartburn, or food "sticking." Certain foods, alcohol, and aspirin can make GERD worse. Treatment depends on the severity. Usually, antacids or acid-suppressing medicines are used. When the esophagus is acutely inflamed, the physician will often prescribe membrane-protective drugs such as Carafate. Some patients benefit from medication such as Reglan that tightens the valve at the top of the stomach. Avoid those foods that bring on your symptoms. For many people, these foods are coffee, chocolate, onions, garlic, and carbonated drinks. Don't use alcohol, aspirin, caffeine, or tobacco. Don't eat late at night -- within 4 hours of bedtime. Don't over-eat. If necessary, elevate the head of your bed about 4 inches so that stomach acid will not roll up into your esophagus. Call the doctor if you develop severe chest pain, inability to swallow fluids, fever, or worsening symptoms. You have a hiatal hernia with gastroesophageal reflux. NORMAL EXAM AND WORKUP: At this time, except for the finding of a hiatal hernia with gastroesophageal reflux on your CT scan, your examination and workup show no significant abnormality. No significant abnormal physical findings were noted. All laboratory, EKG, and imaging (x-ray, CT scans, ultrasound) studies that were ordered show no significant abnormality. Although your examination and all studies that were ordered showed no significant abnormal finding, there are no examinations and no studies that are 100% accurate. There is always the possibility that some abnormality could exist and not be detected with physical examination or within the limits and capabilities of laboratory and other studies. You should return or follow up as you were instructed on your visit today for further evaluation if your symptoms do not resolve. ANTACID THERAPY: You have been instructed to start antacid therapy. Antacids directly neutralize stomach acid. This is useful for acid irritation of the esophagus, gastritis, and ulcers. You should take two tablespoons of antacid one hour after each meal and three hours after each meal. If you are not eating, take the antacid every two hours. If you are using a concentrate (such as Maalox TC), use only one tablespoon. Many antacids affect the bowels. The most common problem is diarrhea. In this case, a pure aluminum hydroxide antacid (such as AlternaGel) can be substituted for some or all doses. If the problem is constipation, add a teaspoon of Milk of Magnesia to each dose. Call the doctor if you experience continued diarrhea or constipation, or if you develop lightheadedness, bloody stool or vomitus, severe abdominal pain, or black stool. You should take Maalox or Mylanta, one tablespoon after meals and at bedtime for a total of 4 times a day. PRILOSEC (ACID PUMP INHIBITOR): Prilosec (omeprazole) is an acid-pump inhibitor. It blocks the secretion of hydrogen ions in the acid-producing cells of the stomach. Prilosec keeps your stomach from making acid. Take all medication as prescribed, even after the pain is gone. Regular antacids may be added as needed if you have symptoms while taking this medicine. There are usually no side effects from this medication. Contact your doctor if there is fever, rash, yellow skin color, increasing abdominal pain, weakness, or unusual bruising. Return at once if you develop lightheadedness, black or bloody stool, or bloody vomitus. FOLLOW-UP CARE: If you have been referred to a physician for follow-up care, call the physician s office for an appointment as you were instructed or within the next two days. If you experience worsening or a significant change in your symptoms, notify the physician immediately or return to the Emergency Department at any time for re-evaluation. Prescriptions: Dicyclomine HCl [Bentyl 20 mg Tablet] 40 mg PO QIDP PRN #60 tablet PRN Reason: Omeprazole 20 mg PO DAILY #30 tablet.
[2016-09-27 11:27] LABS: APPEARANCE,URINE SLIGHTLY-CLOUDY; BILIRUBIN,URINE NEGATIVE (NEGATIVE); GLUCOSE, URINE NEGATIVE (NEGATIVE); KETONES,URINE NEGATIVE (NEGATIVE); LEUKOCYTE ESTERASE,URINE NEGATIVE (NEGATIVE); NITRITE,URINE NEGATIVE (NEGATIVE); PROTEIN,URINE 30 mg/dL (NEGATIVE); URINE SPECIFIC GRAVITY 1.029; UROBILINOGEN,URINE NEGATIVE mg/dL (<2.0)
[2016-09-27 11:38] LABS: ALANINE AMINOTRANSFERASE 18 U/L (21-72); ALBUMIN 4.6 g/dL (3.5-5.0); ALKALINE PHOSPHATASE 75 U/L (38-126); ANION GAP 14 (5-19); ASPARTATE AMINO TRANSFERASE 18 U/L (17-59); BILIRUBIN,DIRECT 0.4 mg/dL (0.0-0.4); BILIRUBIN,TOTAL 0.6 mg/dL (0.2-1.3); BLOOD UREA NITROGEN 18 mg/dL (7-20); CALCIUM 9.7 mg/dL (8.4-10.2); CARBON DIOXIDE 32 mmol/L (22-30); CHLORIDE 93 mmol/L (98-107); CREATININE RESULT 1.27 mg/dL (0.52-1.25); GLUCOSE 102 mg/dL (75-110); LIPASE 101.5 U/L (23-300); POTASSIUM 3.4 mmol/L (3.6-5.0); SODIUM 138.5 mmol/L (137-145); TOTAL PROTEIN 7.3 g/dL (6.3-8.2)
[2016-09-27 11:46] LABS: URINE METHADONE SCREEN NEGATIVE; URINE OPIATES LOW NEGATIVE; URINE PHENCYCLIDINE SCREEN NEGATIVE
[2016-09-27 11:50] LABS: URINE BARBITURATES SCREEN NEGATIVE
[2016-09-27] MEDS ORDERED: HYDROXYZINE HCL INJ 50 MG/1 ML VIAL IM ONE (11:59)
[2016-09-27] MEDS ORDERED: DICYCLOMINE HCL 20 MG TABLET PO ONE (12:52)
--- NOTE | 2016-09-27 14:09 | RADIOLOGY REPORT (SQ) ---
EXAM DESCRIPTION: CT ABD/PELVIS WITH IV ORAL COMPLETED DATE/TIME: 09/27/2016 1:31 pm REASON FOR STUDY: mid abdom pain COMPARISON: CT abdomen pelvis 07/02/2006, 06/01/2012 Abdominal ultrasound 05/23/2012 Abdominal films 07/04/2006, 06/01/2011, 06/04/2012, 09/16/2012 TECHNIQUE: CT scan of the abdomen and pelvis performed using helical scanning technique with dynamic intravenous contrast injection. Patient drank Oral contrast. Images reviewed with lung, soft tissue, and bone windows. Reconstructed coronal and sagittal MPR imag es reviewed. Delayed images for evaluation of the urinary system also acquired. All images stored on PACS. All CT scanners at this facility use dose modulation, iterative reconstruction, and/or weight based d osing when appropriate to reduce radiation dose to as low as reasonably achievable (ALARA). [facility]: Dose Right [facility]: CareDose [facility]: Dose Right [facility]: Teradose 4D [facility]: [employer] CONTRAST TYPE AND DOSE: contrast/concentration: Isovue 370.00 mg/ml; Total Contrast Delivered: 91.0 ml; Total Saline Delivered: 67.0 ml RENAL FUNCTION: Creatinine 1.3 RADIATION DOSE: Up-to-date CT equipment and radiation dose reduction techniques were employed. CTDIv ol: 6.5 - 9.0 mGy. DLP: 911 mGy-cm.. LIMITATIONS: None. FINDINGS: LOWER CHEST: There is a small hiatal hernia with circumferential wall thickening in the di stal esophagus. There is reflux of oral contrast into the distal esophagus. Lung bases are clear. LIVER: Normal size. No masses. No dilated ducts. SPLEEN: Normal size. No focal lesions. PANCREAS: No masses. No significant calcifications. No adjacent inflammation or peripancreatic fluid collections. Pancreatic duct not dilated. GALLBLADDER: No identified stones by CT criteria. No inflammatory changes to suggest cholecystitis. ADRENAL GLANDS: No significant masses or asymmetry. RIGHT KIDNEY AND URETER: No solid masses. Multiple 5 mm cysts are present in the right lower pole ki dney. No significant calcifications. No hydronephrosis or hydroureter. LEFT KIDNEY AND URETER: No solid masses. No significant calcifications. No hydronephrosis or hydr oureter. AORTA AND VESSELS: No aneurysm. No dissection. Renal arteries, SMA, celiac without stenosis. RETROPERITONEUM: No retroperitoneal adenopathy, hemorrhage or masses. BOWEL AND PERITONEAL CAVITY: No masses or inflammatory changes. No free fluid or peritoneal masses. Patient drank oral contrast. No evidence of bowel obstruction. There is reflux contrast from the st omach into the distal esophagus. APPENDIX: Normal. PELVIS: No mass. No free fluid. Normal bladder. ABDOMINAL WALL: No masses. No hernias. BONES: No significant or acute findings. PELVIS: No other significant finding. IMPRESSION: Hiatal hernia with gastroesophageal reflux. Otherwise unremarkable study TECHNICAL DOCUMENTATION: JOB ID: [id number] Quality ID # [id number]: Final reports with documentation of one or more dose reduction techniques (e.g., Au tomated exposure control, adjustment of the mA and/or kV according to patient size, use of iterative reconstruction technique) 2010 [employer]- All Rights Reserved
[2016-09-27 15:25] VITALS: BP 131/92
== END 2016-09-27 15:26 | disposition home or self-care (01) ==
LOC: ER 10:12
DX: K21.9 Gastro-esophageal reflux disease without esophagitis (principal); K44.9 Diaphragmatic hernia without obstruction or gangrene; R19.4 Change in bowel habit; R10.816 Epigastric abdominal tenderness; R10.815 Periumbilic abdominal tenderness; F17.200 Nicotine dependence, unspecified, uncomplicated; F20.9 Schizophrenia, unspecified; Z79.899 Other long term (current) drug therapy
CPT/HCPCS: 99284; 96372; 96374; 36415; 83690; 85025; 80053; 81001; 80307; 74177; J3490 ×2; J2060

== ENCOUNTER 2018-02-26 15:19 | Emergency (ER) | payer SELFPAY ==
--- NOTE | 2018-02-26 16:21 | ER Document Report ---
ED General - General Stated Complaint: CHEST DISCOMFORT Time Seen by Provider: 02/26/18 15:56 Notes: Patient is a 32-year-old male with a recent admission requiring intubation and on the ventilator for 5 days, that presents to the emergency department for chief complaint of chest discomfort and shortness of breath and anxiety. Patient states that he feels like his chest is heavy, and he has a hard time taking a good deep breath, it is across his entire chest, he is felt rather anxious as well. He denies having any pain with a deep breath. He states he was on the ventilator for 5 days, because he had multiple seizures, although he states he is not currently on any seizure medication, but taking medicine for anxiety including Seroquel, he also has cyclic vomiting syndrome, but denies having any nausea or vomiting recently. At this time he denies having any specific pain associated with this, but does states that it is a hard time catching his breath. Denies feeling any palpitations, lightheadedness, dizziness, abdominal pain, diarrhea, dysuria or hematuria. He also denies having any leg swelling, or calf tenderness or pain. Past Medical History: Anxiety, bipolar, cyclic vomiting syndrome Past Surgical History: Colonoscopy Social History: Admits to smoking cigarettes, denies alcohol or drug use. Family History: Reviewed and noncontributory for presenting illness Allergies: Reviewed, see documented allergy list. REVIEW OF SYSTEMS: Other than noted above, the 12 point review of systems was reviewed with the patient and were negative, all pertinent findings are included in the HPI. PHYSICAL EXAMINATION: Vital signs reviewed, nursing noted reviewed. GENERAL: Well-appearing, well-nourished and in no acute distress. HEAD: Atraumatic, normocephalic. EYES: Eyes appear normal, extraocular movements intact, sclera anicteric, conjunctiva are normal. ENT: nares patent, oropharynx clear without exudates. Moist mucous membranes. NECK: Normal range of motion, supple without lymphadenopathy LUNGS: Breath sounds clear to auscultation bilaterally and equal. No wheezes rales or rhonchi. HEART: Regular rate and rhythm without murmurs ABDOMEN: Soft, nontender, normoactive bowel sounds. No rebound, guarding, or rigidity. No masses appreciated. EXTREMITIES: Nontender, good range of motion, no pitting or edema. NEUROLOGICAL: No focal neurological deficits. Moves all extremities spontaneously Motor and sensory grossly intact on exam. PSYCH: Flat affect, mildly anxious SKIN: Warm, Dry, normal turgor, no rashes or lesions noted on exposed skin TRAVEL OUTSIDE OF THE [place] IN LAST 30 DAYS: No - Related Data Allergies/Adverse Reactions: amitriptyline HCl [From Elavil] Adverse Reaction (Severe, Verified 05/23/16 14:04) Wakefulness for several days droperidol [Droperidol] Adverse Reaction (Intermediate, Verified 05/23/16 14:04) "makes me feel bad" metoclopramide HCl [From Reglan] Adverse Reaction (Verified 05/23/16 14:04) morphine [Morphine] Adverse Reaction (Verified 05/23/16 14:04) Past Medical History - Social History Smoking Status: Current Every Day Smoker Family History: None, Reviewed & Not Pertinent - Past Medical History Cardiac Medical History: Reports: Hx Hypertension - Elevated blood pressure without specific diagnosis of hypertension. Denies: Hx Atrial Fibrillation, Hx Congestive Heart Failure, Hx DVT, Hx Heart Attack, Hx Hypercholesterolemia, Hx Pulmonary Embolism Pulmonary Medical History: Denies: Hx Asthma, Hx COPD, Hx Sleep Apnea Neurological Medical History: Reports: Hx Migraine, Hx Seizures - Questionable seizure during previous hospital stay; never on antiepileptic. Endocrine Medical History: Denies: Hx Diabetes Mellitus Type 1, Hx Diabetes Mellitus Type 2, Hx Hyperthyroidism, Hx Hypothyroidism Renal/ Medical History: Denies: Hx Peritoneal Dialysis GI Medical History: Reports: Hx Gastroesophageal Reflux Disease - Mild. Denies: Hx Cirrhosis, Hx Hepatitis Musculoskeletal Medical History: Denies Hx Arthritis, Reports Hx Musculoskeletal Trauma - collar bone Psychiatric Medical History: Reports: Hx Anxiety, Hx Depression, Hx Schizoaffective Disorder, Hx Schizophrenia Traumatic Medical History: Reports: Hx Fractures Infectious Medical History: Denies: Hx Hepatitis Past Surgical History: Denies: Hx Abdominal Surgery - Immunizations Immunizations up to date: Yes Hx Diphtheria, Pertussis, Tetanus Vaccination: Yes Physical Exam - Vital signs Vitals: Resp Pulse Ox 22 H 99 02/26/18 15:26 02/26/18 15:26 Course - Re-evaluation Re-evalutation: Patient seen and examined vital signs reviewed. Laboratory data and imaging were ordered as appropriate for the patient's presenting symptoms and complaint, with consideration of any critical or life threatening conditions that may be associated with their obtained history and exam as noted above. Patient was treated with IV Ativan, given some IV fluid as well Results were reviewed when available and demonstrated unremarkable workup, negative troponin, chest x-ray unremarkable as well, no pneumonia The patient was re-evaluated and was stable and improved Evaluation was most consistent with dyspnea, nonspecific, likely related to post invasive positive pressure ventilation, given patient reassurance, and advised him to follow-up, he was given some hydroxyzine, to take for his anxiety, if his symptoms worsen he was advised to return to the emergency department. Results were discussed with the patient at this point, after careful consideration I feel that that patient can be discharged from the emergency department, the patient was educated treatments and reasons to return to the emergency department based on their presumed diagnosis as noted above, they were advised to followup with a primary care physician in 2-3 days. Patient was agreeable to plan of care. *Note is created using voice recognition software and may contain spelling, syn tax or grammatical errors. Laboratory 02/26/18 02/26/18 02/26/18 16:32 16:32 16:32 WBC 9.7 RBC 4.51 Hgb 13.0 L Hct 38.5 MCV 85 MCH 28.9 MCHC 33.8 RDW 14.8 H Plt Count 762 H Seg Neutrophils % 64.7 Lymphocytes % 24.7 Monocytes % 8.1 Eosinophils % 1.2 Basophils % 1.3 Absolute Neutrophils 6.3 Absolute Lymphocytes 2.4 Absolute Monocytes 0.8 Absolute Eosinophils 0.1 Absolute Basophils 0.1 Sodium 139.1 Potassium 4.1 Chloride 102 Carbon Dioxide 29 Anion Gap 8 BUN 9 Creatinine 0.86 Est GFR ( Amer) > 60 Est GFR (Non-Af Amer) > 60 Glucose 75 Calcium 9.2 Total Bilirubin 0.3 Direct Bilirubin 0.2 Neonat Total Bilirubin Not Reportable Neonat Direct Bilirubin Not Reportable Neonat Indirect Bili Not Reportable AST 49 ALT 47 Alkaline Phosphatase 133 H Troponin I < 0.012 Total Protein 6.4 Albumin 4.0 Chest X-Ray 02/26/18 16:14 IMPRESSION: NO ACUTE RADIOGRAPHIC FINDING IN THE CHEST. - Vital Signs Vital signs: Temp Pulse Resp BP Pulse Ox 21 H 138/94 H 97 02/26/18 18:01 02/26/18 18:00 02/26/18 18:01 - Laboratory Result Diagrams: 02/26/18 16:32 02/26/18 16:32 Laboratory results interpreted by me: 02/26/18 02/26/18 16:32 16:32 Hgb 13.0 L RDW 14.8 H Plt Count 762 H Alkaline Phosphatase 133 H Discharge - Discharge Clinical Impression: Dyspnea Qualifiers: Dyspnea type: unspecified Qualified Code(s): R06.00 - Dyspnea, unspecified Condition: Stable Disposition: HOME, SELF-CARE Instructions: Anti-Inflammatory Medication ([facility]), Dyspnea, Nonspecific ([facility]) Additional Instructions: Please follow-up with a primary care physician, call for an appointment, take the prescribed medications as directed and as needed, if you have worsening symptoms or further concerns, you may return to the emergency department. Prescriptions: RX: Hydroxyzine Pamoate [Vistaril 25 mg Capsule] 25 mg PO Q8H PRN #30 capsule PRN Reason: Anxiety Naproxen [Naprosyn] 500 mg PO BID PRN #30 tablet PRN Reason: rib pain Referrals: SAHRA QUEZADA PA-C [Primary Care Provider] - Follow up in 3-5 days
[2018-02-26] MEDS ORDERED: KETOROLAC TROMETHAMINE INJ/PF 30 MG/1 ML SDV IV ONE (16:38)
[2018-02-26] MEDS ORDERED: LORAZEPAM INJ 2 MG/1 ML VIAL IV ONE (16:38)
[2018-02-26 16:48] LABS: ABSOLUTE BASOPHILS # (AUTO) 0.1 10^3/uL (0.0-0.2); ABSOLUTE EOSINOPHILS # (AUTO) 0.1 10^3/uL (0.0-0.6); ABSOLUTE LYMPHOCYTES (AUTO) 2.4 10^3/uL (0.5-4.7); ABSOLUTE MONOCYTES (AUTO) 0.8 10^3/uL (0.1-1.4); ABSOLUTE NEUT (AUTO) 6.3 10^3/uL (1.7-8.2); BASOPHILS % (AUTO) 1.3 % (0-2); EOSINOPHILS % (AUTO) 1.2 % (0-6); HEMATOCRIT 38.5 % (37.9-51.0); LYMPHOCYTES % (AUTO) 24.7 % (13-45); MEAN CORPUSCULAR HEMOGLOBIN 28.9 pg (27.0-33.4); MEAN CORPUSCULAR HGB CONC 33.8 g/dL (32.0-36.0); MEAN CORPUSCULAR VOLUME 85 fl (80-97); MONOCYTES % (AUTO) 8.1 % (3-13); PLATELET COUNT 762 10^3/uL (150-450); RED BLOOD COUNT 4.51 10^6/uL (4.35-5.55); RED CELL DISTRIBUTION WIDTH 14.8 % (11.5-14.0); SEGMENTED NEUTROPHILS % (AUTO) 64.7 % (42-78); TOTAL CELLS COUNTED % (AUTO) 100 %; WHITE BLOOD COUNT 9.7 10^3/uL (4.0-10.5)
--- NOTE | 2018-02-26 16:56 | RADIOLOGY REPORT (SQ) ---
EXAM DESCRIPTION: CHEST 2 VIEWS COMPLETED DATE/TIME: 02/26/2018 4:48 pm REASON FOR STUDY: chest pain COMPARISON: 08/28/2016 EXAM PARAMETERS: NUMBER OF VIEWS: two views TECHNIQUE: Digital Frontal and Lateral radiographic views of the chest acquired. RADIATION DOSE: NA LIMITATIONS: none FINDINGS: LUNGS AND PLEURA: No opacities, masses or pneumothorax. No pleural effusion. MEDIASTINUM AND HILAR STRUCTURES: No masses or contour abnormalities. HEART AND VASCULAR STRUCTURES: Heart normal size. No evidence for failure. BONES: No acute findings. HARDWARE: None in the chest. OTHER: No other significant finding. IMPRESSION: NO ACUTE RADIOGRAPHIC FINDING IN THE CHEST. TECHNICAL DOCUMENTATION: JOB ID: [id number] [email or web address] All Rights Reserved Reading location - IP/workstation name: [email or web address]
[2018-02-26 17:10] LABS: ALANINE AMINOTRANSFERASE 47 U/L (21-72); ALKALINE PHOSPHATASE 133 U/L (38-126); ANION GAP 8 (5-19); ASPARTATE AMINO TRANSFERASE 49 U/L (17-59); BILIRUBIN,DIRECT 0.2 mg/dL (0.0-0.4); BILIRUBIN,TOTAL 0.3 mg/dL (0.2-1.3); BLOOD UREA NITROGEN 9 mg/dL (7-20); CALCIUM 9.2 mg/dL (8.4-10.2); CARBON DIOXIDE 29 mmol/L (22-30); CHLORIDE 102 mmol/L (98-107); GLUCOSE 75 mg/dL (75-110); POTASSIUM 4.1 mmol/L (3.6-5.0); SODIUM 139.1 mmol/L (137-145); TOTAL PROTEIN 6.4 g/dL (6.3-8.2)
[2018-02-26 18:48] VITALS: BP 138/94
--- NOTE | 2018-02-26 19:26 | EKG REPORT ---
SEVERITY:- OTHERWISE NORMAL ECG - SINUS TACHYCARDIA : Confirmed by: Lali Robles 26-Feb-2018 19:25:14
== END 2018-02-26 18:48 | disposition home or self-care (01) ==
LOC: ER 15:19
DX: R06.00 Dyspnea, unspecified (principal); R07.9 Chest pain, unspecified; F41.9 Anxiety disorder, unspecified; Z79.899 Other long term (current) drug therapy; F17.210 Nicotine dependence, cigarettes, uncomplicated; I10 Essential (primary) hypertension
CPT/HCPCS: 93005; 99284; 96374; 96375; 36415; 85025; 80053; 84484; 71046; 93010; J1885; J2060

== ENCOUNTER 2018-05-13 19:42 | Emergency (ER) | payer SELFPAY ==
[2018-05-13] MEDS ORDERED: ACETAMINOPHEN 325 MG TABLET PO ONE (21:38)
--- NOTE | 2018-05-13 21:42 | ER Document Report ---
ED Medical Screen (RME) - General Chief Complaint: High Blood Pressure Stated Complaint: HEADACHE Time Seen by Provider: 05/13/18 21:37 Primary Care Provider: SAHRA QUEZADA PA-C [Primary Care Provider] - Follow up as needed Notes: 32-year-old male with schizoaffective disorder, PTSD, hypertension presents to the emergency department for severe headache and hypertension. He states his [facility] instructed him to come to the emergency department. Patient recently started on lisinopril a couple of weeks ago. Patient has not taken his lisinopril in the last 2 days. Patient has been tracking his blood pressures and is consistently above 110 diastolic. Patient denies any current chest pain, denies vision changes, denies neck pain. Exam: Respiratory: Lungs clear to auscultation bilaterally, no respiratory distress CV: Tachycardia, regular rhythm, no murmurs heard I have greeted and performed a rapid initial assessment of this patient. A comprehensive ED assessment and evaluation of the patient, analysis of test results and completion of medical decision making process will be conducted by an additional ED providers. TRAVEL OUTSIDE OF THE [place] IN LAST 30 DAYS: No - Related Data Allergies/Adverse Reactions: amitriptyline HCl [From Elavil] Adverse Reaction (Severe, Verified 05/13/18 19:45) Wakefulness for several days droperidol [Droperidol] Adverse Reaction (Intermediate, Verified 05/13/18 19:45) "makes me feel bad" metoclopramide HCl [From Reglan] Adverse Reaction (Verified 05/13/18 19:45) morphine [Morphine] Adverse Reaction (Verified 05/13/18 19:45) Past Medical History - Social History Family history: DM, Other - dementia grandmother - Past Medical History Cardiac Medical History: Reports: Hx Hypertension - Elevated blood pressure without specific diagnosis of hypertension. Denies: Hx Atrial Fibrillation, Hx Congestive Heart Failure, Hx DVT, Hx Heart Attack, Hx Hypercholesterolemia, Hx Pulmonary Embolism Pulmonary Medical History: Denies: Hx Asthma, Hx COPD, Hx Sleep Apnea Neurological Medical History: Reports: Hx Migraine, Hx Seizures - Questionable seizure during previous hospital stay; never on antiepileptic. Endocrine Medical History: Denies: Hx Diabetes Mellitus Type 1, Hx Diabetes Mellitus Type 2, Hx Hyperthyroidism, Hx Hypothyroidism Renal/ Medical History: Denies: Hx Peritoneal Dialysis GI Medical History: Reports: Hx Gastroesophageal Reflux Disease - Mild. Denies: Hx Cirrhosis, Hx Hepatitis Musculoskeltal Medical History: Denies Hx Arthritis, Reports Hx Musculoskeletal Trauma - collar bone Psychiatric Medical History: Reports: Hx Anxiety, Hx Depression, Hx Schizoaffective Disorder, Hx Schizophrenia Traumatic Medical History: Reports: Hx Fractures Infectious Medical History: Denies: Hx Hepatitis Past Surgical History: Denies: Hx Abdominal Surgery - Immunizations Immunizations up to date: Yes Hx Diphtheria, Pertussis, Tetanus Vaccination: Yes Physical Exam - Vital signs Vitals: Temp Pulse Resp BP Pulse Ox 98.8 F 118 H 20 170/111 H 100 05/13/18 20:38 05/13/18 20:38 05/13/18 20:38 05/13/18 20:38 05/13/18 20:38 Course - Vital Signs Vital signs: Temp Pulse Resp BP Pulse Ox 98.8 F 118 H 20 170/111 H 100 05/13/18 20:38 05/13/18 20:38 05/13/18 20:38 05/13/18 20:38 05/13/18 20:38 Doctor's Discharge - Discharge Referrals: SAHRA QUEZADA PA-C [Primary Care Provider] - Follow up as needed
[2018-05-13 22:18] LABS: ABSOLUTE BASOPHILS # (AUTO) 0.1 10^3/uL (0.0-0.2); ABSOLUTE EOSINOPHILS # (AUTO) 0.1 10^3/uL (0.0-0.6); ABSOLUTE LYMPHOCYTES (AUTO) 2.1 10^3/uL (0.5-4.7); ABSOLUTE MONOCYTES (AUTO) 0.4 10^3/uL (0.1-1.4); BASOPHILS % (AUTO) 1.2 % (0-2); EOSINOPHILS % (AUTO) 1.7 % (0-6); HEMATOCRIT 42.5 % (37.9-51.0); HEMOGLOBIN 14.1 g/dL (13.5-17.0); MEAN CORPUSCULAR HEMOGLOBIN 26.5 pg (27.0-33.4); MEAN CORPUSCULAR HGB CONC 33.3 g/dL (32.0-36.0); MEAN CORPUSCULAR VOLUME 80 fl (80-97); MONOCYTES % (AUTO) 8.2 % (3-13); PLATELET COUNT 494 10^3/uL (150-450); RED BLOOD COUNT 5.33 10^6/uL (4.35-5.55); RED CELL DISTRIBUTION WIDTH 15.3 % (11.5-14.0); SEGMENTED NEUTROPHILS % (AUTO) 43.9 % (42-78); TOTAL CELLS COUNTED % (AUTO) 100 %; WHITE BLOOD COUNT 4.6 10^3/uL (4.0-10.5)
[2018-05-13 22:42] LABS: ALANINE AMINOTRANSFERASE 48 U/L (21-72); ALBUMIN 5.2 g/dL (3.5-5.0); ALKALINE PHOSPHATASE 69 U/L (38-126); ANION GAP 16 (5-19); ASPARTATE AMINO TRANSFERASE 35 U/L (17-59); BILIRUBIN,DIRECT 0.3 mg/dL (0.0-0.4); BILIRUBIN,TOTAL 0.4 mg/dL (0.2-1.3); BLOOD UREA NITROGEN 8 mg/dL (7-20); CALCIUM 10.7 mg/dL (8.4-10.2); CARBON DIOXIDE 23 mmol/L (22-30); CHLORIDE 105 mmol/L (98-107); GLUCOSE 93 mg/dL (75-110); POTASSIUM 4.2 mmol/L (3.6-5.0); SODIUM 143.5 mmol/L (137-145); TOTAL PROTEIN 8.4 g/dL (6.3-8.2)
[2018-05-13] MEDS ORDERED: KETOROLAC TROMETHAMINE 60 MG/2 ML SDV IM ONE (22:57)
[2018-05-13] MEDS ORDERED: AMLODIPINE BESYLATE 10 MG TABLET PO ONE (22:58)
--- NOTE | 2018-05-13 23:03 | ER Document Report ---
ED General - General Chief Complaint: High Blood Pressure Stated Complaint: HEADACHE Time Seen by Provider: 05/13/18 21:37 Primary Care Provider: SAHRA QUEZADA PA-C [Primary Care Provider] - Follow up as needed Notes: Patient is a 32-year-old male with past medical history of schizoaffective disorder, essential hypertension, has tachycardia at baseline based on home blood pressure recordings who presents complaining of hypertension and headache. Patient was seen by his primary care physician today, instructed to come to the emergency department for assessment due to high blood pressure. Patient has been recording his blood pressure at home, blood pressure is not different from his home blood pressure readings over the past 1 week. The patient also describes a mild, global, throbbing headache that has been constant for the last 2-3 weeks. States that it seems to go away with Tylenol and ibuprofen. Nothing seems to worsen the headache. No abrupt onset of the headache. No associated weakness, numbness, changes in vision, vomiting or confusion. States this is a very usual headache for him and he has not concerned regarding his headache. Denies any chest pain, shortness of breath, nausea or vomiting. Has been taking lisinopril 20 mg daily and has not noted significant improvement in his blood pressure. Does smoke and occasionally drinks alcohol including today. TRAVEL OUTSIDE OF THE [place] IN LAST 30 DAYS: No - Related Data Allergies/Adverse Reactions: amitriptyline HCl [From Elavil] Adverse Reaction (Severe, Verified 05/13/18 19:45) Wakefulness for several days droperidol [Droperidol] Adverse Reaction (Intermediate, Verified 05/13/18 19:45) "makes me feel bad" metoclopramide HCl [From Reglan] Adverse Reaction (Verified 05/13/18 19:45) morphine [Morphine] Adverse Reaction (Verified 05/13/18 19:45) Past Medical History - General Information source: Patient - Social History Smoking Status: Current Every Day Smoker Cigarette use (# per day): Yes - 1 pack/day cigarettes Smoking Education Provided: Yes - Smoking cessation counseling was provided for 4 minutes at the bedside Frequency of alcohol use: Occasional Drug Abuse: None Family History: None, Reviewed & Not Pertinent Patient has suicidal ideation: No Patient has homicidal ideation: No - Past Medical History Cardiac Medical History: Reports: Hx Hypertension - Elevated blood pressure without specific diagnosis of hypertension. Denies: Hx Atrial Fibrillation, Hx Congestive Heart Failure, Hx DVT, Hx Heart Attack, Hx Hypercholesterolemia, Hx Pulmonary Embolism Pulmonary Medical History: Denies: Hx Asthma, Hx COPD, Hx Sleep Apnea Neurological Medical History: Reports: Hx Migraine, Hx Seizures - seizure r/t lyte imbalance Endocrine Medical History: Denies: Hx Diabetes Mellitus Type 1, Hx Diabetes Mellitus Type 2, Hx Hyperthyroidism, Hx Hypothyroidism Renal/ Medical History: Denies: Hx Peritoneal Dialysis GI Medical History: Reports: Hx Gastroesophageal Reflux Disease - Mild. Denies: Hx Cirrhosis, Hx Hepatitis Musculoskeletal Medical History: Denies Hx Arthritis, Reports Hx Musculoskeletal Trauma - collar bone Psychiatric Medical History: Reports: Hx Anxiety, Hx Depression, Hx Schizoaffective Disorder, Hx Schizophrenia Traumatic Medical History: Reports: Hx Fractures Infectious Medical History: Denies: Hx Hepatitis Past Surgical History: Denies: Hx Abdominal Surgery - Immunizations Immunizations up to date: Yes Hx Diphtheria, Pertussis, Tetanus Vaccination: Yes Review of Systems - Review of Systems Notes: Constitutional: Negative for fever. HENT: Negative for sore throat. Eyes: Negative for visual changes. Cardiovascular: Negative for chest pain. Respiratory: Negative for shortness of breath. Gastrointestinal: Negative for abdominal pain, vomiting or diarrhea. Genitourinary: Negative for dysuria. Musculoskeletal: Negative for back pain. Skin: Negative for rash. Neurological: Positive for headache, negative for weakness or numbness. 10 point ROS negative except as marked above and in HPI. Physical Exam - Vital signs Vitals: Temp Pulse Resp BP Pulse Ox 98.8 F 118 H 20 170/111 H 100 05/13/18 20:38 05/13/18 20:38 05/13/18 20:38 05/13/18 20:38 05/13/18 20:38 Interpretation: Hypertensive, Tachycardic Notes: PHYSICAL EXAMINATION: GENERAL: Well-appearing, well-nourished and in no acute distress. HEAD: Atraumatic, normocephalic. EYES: Pupils equal round and reactive to light, extraocular movements intact, sclera anicteric, conjunctiva are normal. ENT: nares patent, oropharynx clear without exudates. Moist mucous membranes. NECK: Normal range of motion, supple without lymphadenopathy LUNGS: Breath sounds clear to auscultation bilaterally and equal. No wheezes rales or rhonchi. HEART: Regular tachycardia without murmurs ABDOMEN: Soft, nontender, normoactive bowel sounds. No guarding, no rebound. No masses appreciated. EXTREMITIES: Normal range of motion, no pitting or edema. No cyanosis. NEUROLOGICAL: Face symmetric. Tongue protrudes midline. Extraocular motions intact. Pupils are 2 mm and equally reactive. Normal speech, normal gait. 5 out of 5 strength in both the distal and proximal upper and lower extremities bilaterally. Sensation is grossly intact throughout. Finger to nose testing normal. Pronator drift normal. PSYCH: Normal mood, normal affect. SKIN: Warm, Dry, normal turgor, no rashes or lesions noted. Course - Re-evaluation Re-evalutation: 05/13/18 23:00 Presentation of asymptomatic hypertension. Patient does mention mild headache although states that this is chronic, has been present for at least 3 weeks, not new or different tonight and is very similar to headaches he has had in the past. It did go away after receiving acetaminophen. Patient denies any symptoms concerning for SAH, dissection, DC, or encephalopaty. Alert, oriented, and denies any symptoms at time of assessment. Normal neuro exam. EKG and labs obtained by physician personalized living assistant reviewed and noted to be normal. I have added amlodipine 10 mg daily to the patient's current regimen of lisinopril 20 milligrams daily. I have discussed critical importance of follow up with PCP within 1 week and increased risk of devastating stroke, heart attack, respiratory distress, and other life threatening complications if blood pressure is not reduced appropriately. Diet and exercise habits also discussed. Patient will be discharged with return precautions and follow-up recommendations. - Vital Signs Vital signs: Temp Pulse Resp BP Pulse Ox 98.6 F 113 H 16 170/111 H 99 05/13/18 22:30 05/13/18 22:28 05/13/18 22:18 05/13/18 20:38 05/13/18 22:18 - Laboratory Result Diagrams: 05/13/18 22:05 05/13/18 22:05 Laboratory results interpreted by me: 05/13/18 05/13/18 22:05 22:05 MCH 26.5 L RDW 15.3 H Plt Count 494 H Calcium 10.7 H Total Protein 8.4 H Albumin 5.2 H - EKG Interpretation by Me Additional EKG results interpreted by me: 05/13/18 23:01 Sinus tachycardia, rate 104. No ST elevations or depressions. QTC 427. Discharge - Discharge Clinical Impression: Essential hypertension Headache Qualifiers: Headache type: unspecified Headache chronicity pattern: acute headache Intractability: not intractable Qualified Code(s): R51 - Headache Condition: Good Disposition: HOME, SELF-CARE Additional Instructions: You were seen today for blood pressure that was high. This is a long-term risk factor for multiple medical problems including heart attack and stroke. However, the blood pressure in of itself will not cause you to have an acute stroke or heart attack over the course of just several days or weeks. You need to have a gradual reduction of your blood pressure back to normal levels over the next several months in conjunction with your primary care physician. I have added amlodipine 10 mg daily to your regiment of lisinopril 20 mg daily. Please take your blood pressure in the morning shortly after waking up and having your morning urination. Return if you develop headache, weakness, numbness, chest pain, pass out, or have any other symptoms that are concerning to you. Prescriptions: Amlodipine Besylate [Norvasc 10 mg Tablet] 10 mg PO DAILY #30 tablet Referrals: SAHRA QUEZADA PA-C [Primary Care Provider] - Follow up as needed
[2018-05-13 23:34] VITALS: BP 154/104
--- NOTE | 2018-05-14 07:53 | EKG REPORT ---
SEVERITY:- OTHERWISE NORMAL ECG - SINUS TACHYCARDIA : Confirmed by: Braden Perez MD 14-May-2018 07:52:32
== END 2018-05-13 23:35 | disposition home or self-care (01) ==
LOC: ER 19:42
DX: R51 Headache (principal); I10 Essential (primary) hypertension; R00.0 Tachycardia, unspecified; F20.9 Schizophrenia, unspecified; F17.210 Nicotine dependence, cigarettes, uncomplicated
CPT/HCPCS: 93005; 99406; 99283; 96372; 36415; 85025; 80053; 93010; J1885

== ENCOUNTER 2018-08-06 22:51 | Emergency (ER) | payer SELFPAY ==
[2018-08-06] MEDS ORDERED: NORMAL SALINE 1000 ML 1,000 ML IV ONE (23:47)
--- NOTE | 2018-08-06 23:50 | ER Document Report ---
ED Medical Screen (RME) - General Chief Complaint: Anxiety Stated Complaint: ANXIETY/ABDOMINAL PAIN Time Seen by Provider: 08/06/18 23:46 Primary Care Provider: SAHRA QUEZADA PA-C [Primary Care Provider] - Follow up as needed Notes: Patient is a 33-year-old male with multiple medical problems to include schizophrenia, cyclical vomiting syndrome, PTSD with traumatic brain injury presents to the emergency department for generalized abdominal pain. Patient states he has these "attacks" multiple times year. States typically treat with benzos and pain medication. Patient states he is also been admitted to multiple hospitals for "dangerously low potassium and my kidneys not working." According to EMS report patient got 2 mg IV Ativan, 4 mg IV Zofran, 1 mg IV Dilaudid. ABDOMEN: Soft, generalized pain all 4 quadrants non-distended. Bowel sounds present in all 4 quadrants. I have greeted and performed a rapid initial assessment of this patient. A comprehensive ED assessment and evaluation of the patient, analysis of test results and completion of the medical decision making process will be conducted by additional ED providers. I have specifically instructed the patient or family members with the patient to immediately return to any nursing staff should anything change in the patient's condition or with their chief complaint. This medical record was dictated with voice recognizing software. There may be grammatical, syntax errors that are unintended. TRAVEL OUTSIDE OF THE [place] IN LAST 30 DAYS: No - Related Data Allergies/Adverse Reactions: amitriptyline HCl [From Elavil] Adverse Reaction (Severe, Verified 05/13/18 19:45) Wakefulness for several days droperidol [Droperidol] Adverse Reaction (Intermediate, Verified 05/13/18 19:45) "makes me feel bad" metoclopramide HCl [From Reglan] Adverse Reaction (Verified 05/13/18 19:45) morphine [Morphine] Adverse Reaction (Verified 05/13/18 19:45) Past Medical History - Social History Family history: DM, Other - dementia grandmother - Past Medical History Cardiac Medical History: Reports: Hx Hypertension - Elevated blood pressure without specific diagnosis of hypertension. Denies: Hx Atrial Fibrillation, Hx Congestive Heart Failure, Hx DVT, Hx Heart Attack, Hx Hypercholesterolemia, Hx Pulmonary Embolism Pulmonary Medical History: Denies: Hx Asthma, Hx COPD, Hx Sleep Apnea Neurological Medical History: Reports: Hx Migraine, Hx Seizures - seizure r/t lyte imbalance Endocrine Medical History: Denies: Hx Diabetes Mellitus Type 1, Hx Diabetes Mellitus Type 2, Hx Hyperthyroidism, Hx Hypothyroidism Renal/ Medical History: Denies: Hx Peritoneal Dialysis GI Medical History: Reports: Hx Gastroesophageal Reflux Disease - Mild. Denies: Hx Cirrhosis, Hx Hepatitis Musculoskeltal Medical History: Denies Hx Arthritis, Reports Hx Musculoskeletal Trauma - collar bone Psychiatric Medical History: Reports: Hx Anxiety, Hx Depression, Hx Schizoaffective Disorder, Hx Schizophrenia Traumatic Medical History: Reports: Hx Fractures Infectious Medical History: Denies: Hx Hepatitis Past Surgical History: Denies: Hx Abdominal Surgery - Immunizations Immunizations up to date: Yes Hx Diphtheria, Pertussis, Tetanus Vaccination: Yes Physical Exam - Vital signs Vitals: Temp Pulse Resp BP Pulse Ox 98.9 F 114 H 16 140/65 H 94 08/06/18 23:06 08/06/18 23:06 08/06/18 23:06 08/06/18 23:06 08/06/18 23:06 Course - Vital Signs Vital signs: Temp Pulse Resp BP Pulse Ox 98.9 F 114 H 16 140/65 H 94 08/06/18 23:06 08/06/18 23:06 08/06/18 23:06 08/06/18 23:06 08/06/18 23:06 Doctor's Discharge - Discharge Referrals: SAHRA QUEZADA PA-C [Primary Care Provider] - Follow up as needed
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
[2018-08-07 01:18] LABS: ABSOLUTE BASOPHILS # (AUTO) 0.1 10^3/uL (0.0-0.2); ABSOLUTE LYMPHOCYTES (AUTO) 2.1 10^3/uL (0.5-4.7); ABSOLUTE MONOCYTES (AUTO) 0.7 10^3/uL (0.1-1.4); ABSOLUTE NEUT (AUTO) 3.7 10^3/uL (1.7-8.2); BASOPHILS % (AUTO) 1.1 % (0-2); EOSINOPHILS % (AUTO) 0.6 % (0-6); HEMATOCRIT 37.2 % (37.9-51.0); HEMOGLOBIN 12.2 g/dL (13.5-17.0); LYMPHOCYTES % (AUTO) 31.4 % (13-45); MEAN CORPUSCULAR HEMOGLOBIN 26.6 pg (27.0-33.4); MEAN CORPUSCULAR HGB CONC 32.8 g/dL (32.0-36.0); MEAN CORPUSCULAR VOLUME 81 fl (80-97); MONOCYTES % (AUTO) 10.5 % (3-13); PLATELET COUNT 533 10^3/uL (150-450); RED BLOOD COUNT 4.59 10^6/uL (4.35-5.55); RED CELL DISTRIBUTION WIDTH 17.9 % (11.5-14.0); SEGMENTED NEUTROPHILS % (AUTO) 56.4 % (42-78); TOTAL CELLS COUNTED % (AUTO) 100 %; WHITE BLOOD COUNT 6.6 10^3/uL (4.0-10.5)
[2018-08-07 01:38] LABS: ALANINE AMINOTRANSFERASE 21 U/L (21-72); ALBUMIN 4.9 g/dL (3.5-5.0); ALKALINE PHOSPHATASE 50 U/L (38-126); ANION GAP 12 (5-19); ASPARTATE AMINO TRANSFERASE 16 U/L (17-59); BILIRUBIN,DIRECT 0.2 mg/dL (0.0-0.4); BILIRUBIN,TOTAL 0.3 mg/dL (0.2-1.3); BLOOD UREA NITROGEN 10 mg/dL (7-20); CALCIUM 10.4 mg/dL (8.4-10.2); CARBON DIOXIDE 32 mmol/L (22-30); CHLORIDE 99 mmol/L (98-107); GLUCOSE 108 mg/dL (75-110); LIPASE 267.8 U/L (23-300); POTASSIUM 4.2 mmol/L (3.6-5.0); SODIUM 143.3 mmol/L (137-145); TOTAL PROTEIN 7.4 g/dL (6.3-8.2)
[2018-08-07] MEDS ORDERED: HALOPERIDOL LACTATE INJ 5 MG/1 ML VIAL IM ONE (02:03)
[2018-08-07 03:27] VITALS: BP 115/72
== END 2018-08-07 03:50 | disposition home or self-care (01) ==
LOC: ER 22:51
DX: R11.2 Nausea with vomiting, unspecified (principal); R10.84 Generalized abdominal pain; R10.817 Generalized abdominal tenderness; F41.0 Panic disorder [episodic paroxysmal anxiety]; F25.9 Schizoaffective disorder, unspecified; F31.9 Bipolar disorder, unspecified; T50.906A Underdosing of unspecified drugs, medicaments and biological substances, initial encounter; Z91.128 Patient's intentional underdosing of medication regimen for other reason; Z91.14 Patient's other noncompliance with medication regimen
CPT/HCPCS: 99283; 96372; 96360; 36415; 83690; 85025; 80053; J1630; J7030

== ENCOUNTER 2018-08-21 02:11 | Emergency (ER) | payer SELFPAY ==
[2018-08-21] MEDS ORDERED: NORMAL SALINE 1000 ML 1,000 ML IV ONE (02:42)
[2018-08-21] MEDS ORDERED: NALOXONE HCL INJ/PF 0.4 MG/1 ML SDV IV ONE (02:46)
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
[2018-08-21 02:50] LABS: ABSOLUTE EOSINOPHILS # (AUTO) 0.1 10^3/uL (0.0-0.6); ABSOLUTE LYMPHOCYTES (AUTO) 1.9 10^3/uL (0.5-4.7); ABSOLUTE MONOCYTES (AUTO) 0.6 10^3/uL (0.1-1.4); ABSOLUTE NEUT (AUTO) 3.9 10^3/uL (1.7-8.2); BASOPHILS % (AUTO) 0.7 % (0-2); EOSINOPHILS % (AUTO) 1.5 % (0-6); HEMATOCRIT 28.9 % (37.9-51.0); HEMOGLOBIN 9.7 g/dL (13.5-17.0); LYMPHOCYTES % (AUTO) 28.8 % (13-45); MEAN CORPUSCULAR HGB CONC 33.7 g/dL (32.0-36.0); MEAN CORPUSCULAR VOLUME 80 fl (80-97); MONOCYTES % (AUTO) 9.1 % (3-13); PLATELET COUNT 306 10^3/uL (150-450); RED CELL DISTRIBUTION WIDTH 17.9 % (11.5-14.0); SEGMENTED NEUTROPHILS % (AUTO) 59.9 % (42-78); TOTAL CELLS COUNTED % (AUTO) 100 %; WHITE BLOOD COUNT 6.6 10^3/uL (4.0-10.5)
[2018-08-21 02:56] LABS: ALANINE AMINOTRANSFERASE 71 U/L (21-72); ALBUMIN 3.8 g/dL (3.5-5.0); ALKALINE PHOSPHATASE 51 U/L (38-126); ANION GAP 9 (5-19); ASPARTATE AMINO TRANSFERASE 56 U/L (17-59); BILIRUBIN,DIRECT 0.3 mg/dL (0.0-0.4); BILIRUBIN,TOTAL 0.3 mg/dL (0.2-1.3); BLOOD UREA NITROGEN 14 mg/dL (7-20); CALCIUM 8.9 mg/dL (8.4-10.2); CARBON DIOXIDE 26 mmol/L (22-30); CHLORIDE 107 mmol/L (98-107); GLUCOSE 105 mg/dL (75-110); POTASSIUM 4.1 mmol/L (3.6-5.0); SODIUM 141.7 mmol/L (137-145); TOTAL PROTEIN 6.1 g/dL (6.3-8.2)
[2018-08-21 02:57] LABS: ACETAMINOPHEN < 10 ug/mL (10-30); ALCOHOL < 10 mg/dL (NONE DETECTED)
[2018-08-21] MEDS ORDERED: TAMSULOSIN HCL 0.4 MG CAP.SR.24H PO ONE (03:07)
--- NOTE | 2018-08-21 05:29 | RADIOLOGY REPORT (SQ) ---
CLINICAL HISTORY: altered mental state COMPARISON: August 28, 2016. TECHNIQUE: CT HEAD WITHOUT IV CONTRAST on 08/21/2018 4:05 AM CDT This exam was performed according to our departmental dose-optimization program, which includes automated exposure control, adjustment of the mA and/or kV according to patient size and/or use of iterative reconstruction technique. FINDINGS: There is no acute hemorrhage, mass effect or midline shift. Mayer-white differentiation is preserved. There is no hydrocephalus. There is no significant volume loss for age. The calvarium is intact. Orbits and globes are unremarkable. The paranasal sinuses are clear. Mastoid air cells are clear. IMPRESSION: No acute intracranial findings.
[2018-08-21 06:26] LABS: APPEARANCE,URINE CLEAR; BILIRUBIN,URINE NEGATIVE (NEGATIVE); COLOR,URINE STRAW; GLUCOSE, URINE NEGATIVE (NEGATIVE); KETONES,URINE NEGATIVE (NEGATIVE); LEUKOCYTE ESTERASE,URINE NEGATIVE (NEGATIVE); NITRITE,URINE NEGATIVE (NEGATIVE); PROTEIN,URINE NEGATIVE (NEGATIVE); URINE SPECIFIC GRAVITY 1.005; UROBILINOGEN,URINE NEGATIVE mg/dL (<2.0)
[2018-08-21 06:43] LABS: URINE AMPHETAMINES SCREEN NEGATIVE; URINE BARBITURATES SCREEN NEGATIVE; URINE BENZODIAZEPINES SCREEN NEGATIVE; URINE COCAINE SCREEN NEGATIVE; URINE MARIJUANA (THC) SCREEN NEGATIVE; URINE METHADONE SCREEN NEGATIVE; URINE PHENCYCLIDINE SCREEN NEGATIVE
[2018-08-21 08:23] VITALS: BP 131/76
--- NOTE | 2018-08-21 10:03 | ER Document Report ---
Doctor's Note Notes: 08/21/18 10:02 Patient finally awoke at 10 AM. He denies suicidal ideation and states he was this trying to get high. He is ambulating and tolerating food. Patient will be discharged home in stable condition.
--- NOTE | 2018-08-21 10:32 | EKG REPORT ---
SEVERITY:- NORMAL ECG - SINUS RHYTHM : Confirmed by: Brynn Leroy MD 21-Aug-2018 10:31:25
== END 2018-08-21 10:43 | disposition home or self-care (01) ==
LOC: ER 02:11
DX: R41.0 Disorientation, unspecified (principal); T42.4X1A Poisoning by benzodiazepines, accidental (unintentional), initial encounter; X58.XXXA Exposure to other specified factors, initial encounter; Y92.009 Unspecified place in unspecified non-institutional (private) residence as the place of occurrence of the external cause; Z87.820 Personal history of traumatic brain injury
CPT/HCPCS: 93005; 99285; 96361; 96374; 36415; 80307 ×3; 83735; 85025; 80053; 81001; 70450; 93010; J2310; J7030

== ENCOUNTER 2018-10-03 15:22 | Emergency (ER) | payer SELFPAY ==
[2018-10-03] MEDS ORDERED: NORMAL SALINE 1000 ML 1,000 ML IV ONE ×2 (15:38→17:49)
[2018-10-03] MEDS ORDERED: ONDANSETRON HCL INJ/PF 4 MG/2 ML SDV IV ONE (15:38)
--- NOTE | 2018-10-03 15:45 | ER Document Report ---
ED Medical Screen (RME) - General Chief Complaint: Abdominal Pain Stated Complaint: ABDOMINAL PAIN Time Seen by Provider: 10/03/18 15:35 Primary Care Provider: DIALLO,SHAHIDA [Primary Care Provider] - Follow up as needed Mode of Arrival: Carried Information source: Patient Notes: 34-year-old male presented to ED for complaint of abdominal pain nausea and vomiting. He has been seen gagging himself multiple times during his stay today. He states he has a history of abdominal migraines and he needs Dilaudid and Ativan for his pain. I have explained to him that we do not give Dilaudid and Ativan in the triage area but I will order him some blood and urine test and give him some IV fluid and some Zofran. He is stated that he is not nauseated he just feels sick. And I have informed him that just feeling sick is nausea. I have greeted and performed a rapid initial assessment of this patient. A comprehensive ED assessment and evaluation of the patient, analysis of test results and completion of medical decision making process will be conducted by an additional ED providers. Dictation of this chart was performed using voice recognition software; theref ore, there may be some unintended grammatical errors. TRAVEL OUTSIDE OF THE [place] IN LAST 30 DAYS: No - Related Data Allergies/Adverse Reactions: No Known Allergies Allergy (Verified 10/03/18 15:25) Past Medical History - Social History Family history: DM, Other - dementia grandmother - Past Medical History Cardiac Medical History: Reports: Hx Hypertension - Elevated blood pressure without specific diagnosis of hypertension. Denies: Hx Atrial Fibrillation, Hx Congestive Heart Failure, Hx DVT, Hx Heart Attack, Hx Hypercholesterolemia, Hx Pulmonary Embolism Pulmonary Medical History: Denies: Hx Asthma, Hx COPD, Hx Sleep Apnea Neurological Medical History: Reports: Hx Migraine, Hx Seizures - seizure r/t lyte imbalance Endocrine Medical History: Denies: Hx Diabetes Mellitus Type 1, Hx Diabetes Mellitus Type 2, Hx Hyperthyroidism, Hx Hypothyroidism Renal/ Medical History: Denies: Hx Peritoneal Dialysis GI Medical History: Reports: Hx Gastroesophageal Reflux Disease - Mild. Denies: Hx Cirrhosis, Hx Hepatitis Musculoskeltal Medical History: Denies Hx Arthritis, Reports Hx Musculoskeletal Trauma - collar bone Psychiatric Medical History: Reports: Hx Anxiety, Hx Depression, Hx Schizoaffective Disorder, Hx Schizophrenia Traumatic Medical History: Reports: Hx Fractures Infectious Medical History: Denies: Hx Hepatitis Past Surgical History: Denies: Hx Abdominal Surgery - Immunizations Immunizations up to date: Yes Hx Diphtheria, Pertussis, Tetanus Vaccination: Yes Physical Exam - Vital signs Vitals: Temp Pulse Resp BP Pulse Ox 98.3 F 130 H 15 153/104 H 95 10/03/18 15:29 10/03/18 15:29 10/03/18 15:29 10/03/18 15:29 10/03/18 15:29 Course - Vital Signs Vital signs: Temp Pulse Resp BP Pulse Ox 98.3 F 130 H 15 153/104 H 95 10/03/18 15:29 10/03/18 15:29 10/03/18 15:29 10/03/18 15:29 10/03/18 15:29 Doctor's Discharge - Discharge [facility]errals: [facility] [[facility]] - Follow up as needed
[2018-10-03 16:14] LABS: ABSOLUTE BASOPHILS # (AUTO) 0.1 10^3/uL (0.0-0.2); ABSOLUTE EOSINOPHILS # (AUTO) 0.1 10^3/uL (0.0-0.6); ABSOLUTE LYMPHOCYTES (AUTO) 2.3 10^3/uL (0.5-4.7); ABSOLUTE MONOCYTES (AUTO) 0.9 10^3/uL (0.1-1.4); ABSOLUTE NEUT (AUTO) 6.8 10^3/uL (1.7-8.2); BASOPHILS % (AUTO) 0.7 % (0-2); EOSINOPHILS % (AUTO) 0.7 % (0-6); HEMATOCRIT 41.4 % (37.9-51.0); HEMOGLOBIN 13.6 g/dL (13.5-17.0); MEAN CORPUSCULAR HEMOGLOBIN 26.3 pg (27.0-33.4); MEAN CORPUSCULAR HGB CONC 32.9 g/dL (32.0-36.0); MEAN CORPUSCULAR VOLUME 80 fl (80-97); MONOCYTES % (AUTO) 8.5 % (3-13); PLATELET COUNT 712 10^3/uL (150-450); RED BLOOD COUNT 5.18 10^6/uL (4.35-5.55); RED CELL DISTRIBUTION WIDTH 17.6 % (11.5-14.0); SEGMENTED NEUTROPHILS % (AUTO) 67.1 % (42-78); TOTAL CELLS COUNTED % (AUTO) 100 %; WHITE BLOOD COUNT 10.1 10^3/uL (4.0-10.5)
[2018-10-03 16:37] LABS: ALBUMIN 5.7 g/dL (3.5-5.0); ALKALINE PHOSPHATASE 85 U/L (38-126); ANION GAP 19 (5-19); ASPARTATE AMINO TRANSFERASE 61 U/L (17-59); BILIRUBIN,DIRECT 0.4 mg/dL (0.0-0.4); BILIRUBIN,TOTAL 0.6 mg/dL (0.2-1.3); BLOOD UREA NITROGEN 14 mg/dL (7-20); CALCIUM 10.7 mg/dL (8.4-10.2); CARBON DIOXIDE 26 mmol/L (22-30); CHLORIDE 99 mmol/L (98-107); GLUCOSE 125 mg/dL (75-110); POTASSIUM 3.6 mmol/L (3.6-5.0); TOTAL PROTEIN 9.5 g/dL (6.3-8.2)
[2018-10-03] MEDS ORDERED: FAMOTIDINE INJ/PF 20 MG/2 ML SDV IV ONE (17:08)
[2018-10-03] MEDS ORDERED: HALOPERIDOL LACTATE INJ 5 MG/1 ML VIAL IM ONE (17:08)
[2018-10-03 17:43] LABS: APPEARANCE,URINE CLOUDY; BILIRUBIN,URINE SMALL (NEGATIVE); COLOR,URINE DARK YELLOW; GLUCOSE, URINE NEGATIVE (NEGATIVE); KETONES,URINE TRACE mg/dL (NEGATIVE); LEUKOCYTE ESTERASE,URINE NEGATIVE (NEGATIVE); NITRITE,URINE NEGATIVE (NEGATIVE); PROTEIN,URINE >=500 mg/dL (NEGATIVE); URINE SPECIFIC GRAVITY 1.028
[2018-10-03 17:58] LABS: URINE AMPHETAMINES SCREEN NEGATIVE; URINE BARBITURATES SCREEN NEGATIVE; URINE BENZODIAZEPINES SCREEN NEGATIVE; URINE COCAINE SCREEN NEGATIVE; URINE MARIJUANA (THC) SCREEN NEGATIVE; URINE METHADONE SCREEN NEGATIVE; URINE PHENCYCLIDINE SCREEN UNCONFIRMED POSITIVE
--- NOTE | 2018-10-03 19:32 | RADIOLOGY REPORT (SQ) ---
EXAM DESCRIPTION: U/S ABDOMEN LIMITED W/O DOP COMPLETED DATE/TIME: 10/03/2018 7:10 pm REASON FOR STUDY: epigstric /RUQ pain COMPARISON: None. TECHNIQUE: Dynamic and static grayscale images acquired of the right upper quadrant and recorded on PACS. Additional selected color Doppler and spectral images recorded. LIMITATIONS: Study limited due to acoustical interference from fat or from air in the bowel. FINDINGS: PANCREAS: Visualized pancreas and duct normal. Parts of pancreas poorly seen secondary to acoustical interference from fat or from air in the bowel. LIVER: No masses. Echotexture normal. LIVER VASCULATURE: Normal directional flow of the main portal vein and hepatic veins. GALLBLADDER: No stones. Normal wall thickness. No pericholecystic fluid. ULTRASOUND-DETECTED RUSSELL'S SIGN: Negative. INTRAHEPATIC DUCTS AND COMMON DUCT: CBD and intrahepatic ducts normal caliber. No filling defects. INFERIOR VENA CAVA: Normal flow. AORTA: No aneurysm. RIGHT KIDNEY: Normal size. Normal echogenicity. No solid or suspicious masses. No hydronephrosis. No calcifications. PERITONEAL CAVITY AND RIGHT PLEURAL SPACE: No ascites or effusions. OTHER: No other significant finding. IMPRESSION: No gallstones or acute inflammatory changes identified. TECHNICAL DOCUMENTATION: JOB ID: [id number] [id number] 2010 [employer]- All Rights Reserved Reading location - IP/workstation name: [email or web address]
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
[2018-10-03 20:33] VITALS: BP 158/88
== END 2018-10-03 20:33 | disposition home or self-care (01) ==
LOC: ER 15:22
DX: R10.13 Epigastric pain (principal); R03.0 Elevated blood-pressure reading, without diagnosis of hypertension; F17.200 Nicotine dependence, unspecified, uncomplicated; F20.9 Schizophrenia, unspecified; F43.10 Post-traumatic stress disorder, unspecified; Z87.820 Personal history of traumatic brain injury
CPT/HCPCS: 99284; 96372; 96361; 96374; 96375; 36415; 83690; 85025; 80053; 81001; 80307; 76705; J1630; J2405; J7030; S0028

== ENCOUNTER 2019-05-09 06:59 | Inpatient (IN) | payer OTHER ==
[2019-05-09] MEDS ORDERED: NORMAL SALINE 1000 ML 1,000 ML IV ONE ×3 (07:10→08:01)
[2019-05-09 07:39] LABS: ABSOLUTE MONOCYTES (AUTO) 1.7 10^3/uL (0.1-1.4); ABSOLUTE NEUT (AUTO) 14.6 10^3/uL (1.7-8.2); BASOPHILS % (AUTO) 0.2 % (0-2); HEMATOCRIT 34.8 % (37.9-51.0); HEMOGLOBIN 11.4 g/dL (13.5-17.0); LYMPHOCYTES % (AUTO) 5.9 % (13-45); MEAN CORPUSCULAR HEMOGLOBIN 23.3 pg (27.0-33.4); MEAN CORPUSCULAR HGB CONC 32.8 g/dL (32.0-36.0); MEAN CORPUSCULAR VOLUME 71 fl (80-97); MONOCYTES % (AUTO) 9.9 % (3-13); PLATELET COUNT 444 10^3/uL (150-450); RED BLOOD COUNT 4.91 10^6/uL (4.35-5.55); RED CELL DISTRIBUTION WIDTH 19.4 % (11.5-14.0); TOTAL CELLS COUNTED % (AUTO) 100 %; WHITE BLOOD COUNT 17.4 10^3/uL (4.0-10.5)
[2019-05-09 07:49] LABS: ALBUMIN 4.9 g/dL (3.5-5.0); ALKALINE PHOSPHATASE 45 U/L (38-126); ASPARTATE AMINO TRANSFERASE 63 U/L (17-59); BILIRUBIN,DIRECT 0.5 mg/dL (0.0-0.4); BILIRUBIN,TOTAL 0.6 mg/dL (0.2-1.3); BLOOD UREA NITROGEN 98 mg/dL (7-20); CALCIUM 11.3 mg/dL (8.4-10.2); GLUCOSE 102 mg/dL (75-110); TOTAL PROTEIN 7.7 g/dL (6.3-8.2)
[2019-05-09 07:52] LABS: VENOUS BLOOD BASE EXCESS 2.2 mmol/L; VENOUS BLOOD HCO3 27.8 mmol/L (20-32); VENOUS BLOOD PCO2 47.8 mmHg (35-63); VENOUS BLOOD PH 7.38 (7.30-7.42)
[2019-05-09 07:55] LABS: CARBON DIOXIDE 26 mmol/L (22-30); CHLORIDE 76 mmol/L (98-107)
[2019-05-09 07:56] LABS: ANION GAP 30 (5-19); CREATINE KINASE 2670 U/L (55-170)
[2019-05-09] MEDS ORDERED: ONDANSETRON HCL INJ/PF 4 MG/2 ML SDV IV PRN (08:55)
[2019-05-09] MEDS ORDERED: ACETAMINOPHEN 325 MG TABLET PO PRN (08:55)
--- NOTE | 2019-05-09 09:12 | PDOC H&P ---
History of Present Illness Admission Date/PCP: [facility] Patient complains of: Possible overdose History of Present Illness: LISA MEJIAS is a 33 year old male with history of depression, history of marijuana use came to the emergency room with complaints of stomach pains and lower leg weakness for the past 2 weeks. He also told me he is not eating well for the last 2 weeks. Denies any fevers denies any shortness of breath denies any headaches denies any falls denies any dizziness denies any nausea vomiting diarrhea. Complaining of decreased urinary output. Work-up in the ER indicates creatinine of 17 and CK 2670. Medical consult was called for SUNIL. Patient denies any drug use. Complaining of stomach pains requesting IV pain medications. Patient is also hypotensive in the ER. Plan to put him in IMCU for further management. Denies any suicidal ideations. Past Medical History Cardiac Medical History: Reports: Hypertension - Elevated blood pressure without specific diagnosis of hypertension. Denies: Atrial Fibrillation, Congestive Heart Failure, DVT, Myocardial Infarction, Hyperlipidema, Pulmonary Embolism Pulmonary Medical History: Denies: Asthma, Chronic Obstructive Pulmonary Disease (COPD), Sleep Apnea Neurological Medical History: Reports: Migraine, Seizures - seizure r/t lyte imbalance Endocrine Medical History: Denies: Diabetes Mellitus Type 1, Diabetes Mellitus Type 2, Hyperthyroidism, Hypothyroidism GI Medical History: Reports: Gastroesophageal Reflux Disease - Mild Denies: Cirrhosis, Hepatitis Musculoskeltal Medical History: Denies: Arthritis Psychiatric Medical History: Reports: Depression, Schizoaffective Disorder Past Surgical History Past Surgical History: Reports: None Social History Smoking Status: Current Some Day Smoker Electronic Cigarette use?: No Frequency of Alcohol Use: Occasional Hx Recreational Drug Use: Yes Drugs: None Hx Prescription Drug Abuse: Yes - Suspected Xanax overdose - Advance Directive Resuscitation Status: Full Code Family History Family History: None, Reviewed & Not Pertinent Parental Family History Reviewed: Yes - hypertension. Children Family History Reviewed: Yes Sibling(s) Family History Reviewed.: Yes Medication/Allergy Home Medications: Gabapentin [Neurontin 300 mg Capsule] 300 mg PO Q8HP PRN 08/21/18 Quetiapine Fumarate 300 mg PO QHS 08/21/18 Quetiapine Fumarate [Seroquel] 50 mg PO DAILY 08/21/18 Famotidine [Pepcid 40 mg Tablet] 40 mg PO BID #60 tablet 10/03/18 Ondansetron [Zofran Odt 4 mg Tablet] 1 - 2 tab PO Q6 PRN #15 tab.rapdis 10/03/18 Allergies/Adverse Reactions: No Known Allergies Allergy (Verified 10/03/18 15:25) Review of Systems Constitutional: ABSENT: fever(s) Ears: ABSENT: hearing changes Nose, Mouth, and Throat: ABSENT: sore throat Cardiovascular: ABSENT: chest pain, dyspnea on exertion, edema, orthropnea, palpitations Gastrointestinal: PRESENT: abdominal pain. ABSENT: constipation, diarrhea, hematemesis, hematochezia, nausea, vomiting Genitourinary: PRESENT: other - Of decreased urinary output Musculoskeletal: PRESENT: other - c/o of lower leg weakness Neurological: ABSENT: abnormal gait, abnormal speech, confusion, dizziness, focal weakness, syncope Psychiatric: ABSENT: anxiety, depression, homidical ideation, suicidal ideation Physical Exam Vital Signs: Temp Pulse Resp BP Pulse Ox 98.7 F 110 H 19 116/63 95 05/09/19 07:03 05/09/19 07:03 05/09/19 08:25 05/09/19 08:20 05/09/19 08:24 Intake & Output 05/08/19 05/09/19 05/10/19 06:59 06:59 06:59 Intake Total 1999 Balance 1999 Weight 91.7 kg General appearance: PRESENT: mild distress, well-developed Head exam: PRESENT: atraumatic Eye exam: PRESENT: PERRLA Mouth exam: PRESENT: dry mucosa, tongue midline. ABSENT: moist Respiratory exam: PRESENT: clear to auscultation riky. ABSENT: rales, rhonchi, wheezes Cardiovascular exam: PRESENT: tachycardia GI/Abdominal exam: PRESENT: normal bowel sounds, soft. ABSENT: distended, guarding, mass, organolmegaly, rebound, tenderness Rectal exam: PRESENT: deferred Extremities exam: PRESENT: full ROM. ABSENT: calf tenderness, clubbing, pedal edema Neurological exam: PRESENT: alert, awake, oriented to person, oriented to place, oriented to time, oriented to situation, CN II-XII grossly intact. ABSENT: motor sensory deficit Psychiatric exam: PRESENT: appropriate affect, normal mood. ABSENT: homicidal ideation, suicidal ideation Results Laboratory Results: 05/09/19 07:08 05/09/19 07:08 05/09/19 05/09/19 05/09/19 07:08 07:08 07:36 WBC 17.4 H RBC 4.91 Hgb 11.4 L Hct 34.8 L MCV 71 L MCH 23.3 L MCHC 32.8 RDW 19.4 H Plt Count 444 Seg Neutrophils % 84.0 H VBG pH 7.38 VBG pCO2 47.8 VBG HCO3 27.8 VBG Base Excess 2.2 Sodium 131.8 L Potassium 4.0 Chloride 76 L Carbon Dioxide 26 Anion Gap 30 H BUN 98 H Creatinine 17.84 H Est GFR ( Amer) 4 L Glucose 102 Calcium 11.3 H Total Bilirubin 0.6 AST 63 H Alkaline Phosphatase 45 Total Protein 7.7 Albumin 4.9 05/09/19 05/09/19 07:08 07:08 Creatine Kinase 2670 H Troponin I 0.025 Assessment and Plan - Diagnosis (1) SUNIL (acute kidney injury) Is this a current diagnosis for this admission?: Yes Plan: 05/09/2019-patient is going to be admitted to [facility] with a diagnosis of SUNIL. Previous creatinine is 1.49. Patient is going to be inpatient started on IV fluids normal saline at 250 cc/h. To hold gabapentin at this time. GI prophylaxis DVT prophylaxis initiated started on IV morphine for pain. Check the labs tomorrow. (2) Acute drug overdose Is this a current diagnosis for this admission?: Yes Plan: 05/09/2019 patient is taking gabapentin for leg pains as per the ER physician on the patient he took extra medications or extra doses of unknown number. It may be a contributing factor for SUNIL. (3) Rhabdomyolysis Is this a current diagnosis for this admission?: Yes Plan: 05/09/2019-CK is 2670. Rhabdomyolysis may be secondary to drug overdose. Started on IV fluids to 50 cc/h to recheck the labs tomorrow. (4) Elevated troponin I level Is this a current diagnosis for this admission?: Yes Plan: 05/09/2019 patient admitted with elevated troponin of 0.025. It may be secondary to type II myocardial ischemia. To repeat the troponin levels later on this evening. Denies any chest pains. (6) Hyponatremia Is this a current diagnosis for this admission?: Yes Plan: 05/09/2019-serum sodium is 131.8. Hyponatremia may be secondary to acute renal failure and prerenal causes. Presently on normal saline at 250 cc/h.
--- NOTE | 2019-05-09 09:54 | RADIOLOGY REPORT (SQ) ---
EXAM DESCRIPTION: CHEST 2 VIEWS COMPLETED DATE/TIME: 05/09/2019 9:41 am REASON FOR STUDY: dyspnea COMPARISON: 02/26/2018 EXAM PARAMETERS: NUMBER OF VIEWS: two views TECHNIQUE: Digital Frontal and Lateral radiographic views of the chest acquired. RADIATION DOSE: NA LIMITATIONS: none FINDINGS: LUNGS AND PLEURA: No opacities, masses or pneumothorax. No pleural effusion. MEDIASTINUM AND HILAR STRUCTURES: No masses or contour abnormalities. HEART AND VASCULAR STRUCTURES: Heart normal size. No evidence for failure. BONES: No acute findings. HARDWARE: None in the chest. OTHER: No other significant finding. IMPRESSION: NO ACUTE RADIOGRAPHIC FINDING IN THE CHEST. TECHNICAL DOCUMENTATION: JOB ID: [id number] 2010 [email or web address]- All Rights Reserved Reading location - IP/workstation name: [email or web address]
--- NOTE | 2019-05-09 09:57 | RADIOLOGY REPORT (SQ) ---
EXAM DESCRIPTION: CT ABD/PELVIS NO ORAL OR IV COMPLETED DATE/TIME: 05/09/2019 9:36 am REASON FOR STUDY: abd pain COMPARISON: CT of the abdomen pelvis with contrast from 09/27/2016 TECHNIQUE: CT scan of the abdomen and pelvis performed without intravenous or oral contrast. Images reviewed with lung, soft tissue, and bone windows. Reconstructed coronal and sagittal MPR images revi ewed. All images stored on PACS. All CT scanners at this facility use dose modulation, iterative reconstruction, and/or weight based d osing when appropriate to reduce radiation dose to as low as reasonably achievable (ALARA). [facility]: Dose Right [facility]: CareDose [facility]: Dose Right [facility]: Teradose 4D [facility]: Smart SugarCRM RADIATION DOSE: CT Rad equipment meets quality standard of care and radiation dose reduction techniq ues were employed. CTDIvol: 14.4 mGy. DLP: 895 mGy-cm. LIMITATIONS: None. FINDINGS: LOWER CHEST: Atelectatic opacities in the right lower lobe. The heart is normal in size. There is no pericardial or pleural effusion. NON-CONTRASTED LIVER, SPLEEN, ADRENALS: Evaluation is limited due to the absence of intravenous contr ast. There is no CT evidence of hepatic steatosis. The spleen is normal in size. There is no abnor mality of the adrenal glands. PANCREAS: No acute gross abnormality of the pancreas. GALLBLADDER: The gallbladder is contracted. RIGHT KIDNEY AND URETER: Evaluation is limited due to the absence of intravenous contrast. There is no hydronephrosis, nephrolithiasis, hydroureter or ureterolithiasis. LEFT KIDNEY AND URETER: Evaluation is limited due to the absence of intravenous contrast. There is n o hydronephrosis, nephrolithiasis, hydroureter or ureterolithiasis. AORTA AND RETROPERITONEUM: No aneurysm of the abdominal aorta. No retroperitoneal adenopathy, hemorr allison or mass. BOWEL AND PERITONEAL CAVITY: The stomach is dilated and there is reflux of the gastric contents into the thoracic esophagus. The bowel is normal in caliber ; there is no bowel wall thickening, pericolo katt/ perienteric inflammation, free intraperitoneal fluid, mesenteric adenopathy, or mesenteric/ omen ajit inflammation. APPENDIX: Normal. PELVIS, BLADDER, AND ABDOMINAL WALL:No abnormality of the prostate gland and urinary bladder. BONES: No fracture or osseous lesion. OTHER: No other finding. IMPRESSION: Isolated dilatation of stomach - correlate for gastric outlet obstruction. COMMENT: Quality ID # [id number]: Final reports with documentation of one or more dose reduction techniques (e.g., Automated exposure control, adjustment of the mA and/or kV according to patient size, use of iterative reconstruction technique) TECHNICAL DOCUMENTATION: JOB ID: [id number] 2010 [employer]- All Rights Reserved Reading location - IP/workstation name: [email or web address]
[2019-05-09] MEDS: NORMAL SALINE 1000 ML 1,000 ML IV PRN ×3 (10:15→21:37)
--- NOTE | 2019-05-09 10:52 | RADIOLOGY REPORT (SQ) ---
EXAM DESCRIPTION: U/S RETROPERITON (RENAL/AORTA) COMPLETED DATE/TIME: 05/09/2019 10:15 am REASON FOR STUDY: acute renal failure COMPARISON: None. TECHNIQUE: Dynamic and static grayscale images acquired of the kidneys and bladder and recorded on P ACS. Additional selected color Doppler and spectral images recorded. LIMITATIONS: None. FINDINGS: RIGHT KIDNEY: The right kidney measures 10.4 cm in length. Normal echogenicity. No so lid or suspicious masses. No hydronephrosis. No calcifications. LEFT KIDNEY: The left kidney measures 11.5 cm in length. Normal echogenicity. No solid or suspic ious masses. No hydronephrosis. No calcifications. There is a simple 1.7 x 1.4 x 1.4 cm cyst. BLADDER: No masses. OTHER FINDINGS: No other significant finding. IMPRESSION: Small left renal cyst. No other significant findings. TECHNICAL DOCUMENTATION: JOB ID: [id number] 2010 [employer]- All Rights Reserved Reading location - IP/workstation name: [email or web address]
[2019-05-09] MEDS: PANTOPRAZOLE SODIUM 40 MG VIAL IV SCH ×2 (11:12→21:36)
--- NOTE | 2019-05-09 11:24 | EKG REPORT ---
SEVERITY:- ABNORMAL ECG - SINUS TACHYCARDIA BORDERLINE PROLONGED QT INTERVAL NONSPECIFIC ST-T CHANGES DIFFUSE. : Confirmed by: Braden Perez MD 09-May-2019 11:24:19
[2019-05-09 14:23] LABS: APPEARANCE,URINE SLIGHTLY-CLOUDY; BILIRUBIN,URINE NEGATIVE (NEGATIVE); COLOR,URINE YELLOW; GLUCOSE, URINE 50 mg/dL (NEGATIVE); KETONES,URINE NEGATIVE (NEGATIVE); LEUKOCYTE ESTERASE,URINE TRACE (NEGATIVE); NITRITE,URINE NEGATIVE (NEGATIVE); PROTEIN,URINE 30 mg/dL (NEGATIVE); URINE SPECIFIC GRAVITY 1.019; UROBILINOGEN,URINE NEGATIVE mg/dL (<2.0)
[2019-05-09 14:45] LABS: URINE AMPHETAMINES SCREEN NEGATIVE; URINE BARBITURATES SCREEN NEGATIVE; URINE BENZODIAZEPINES SCREEN NEGATIVE; URINE COCAINE SCREEN NEGATIVE; URINE MARIJUANA (THC) SCREEN NEGATIVE; URINE METHADONE SCREEN NEGATIVE; URINE PHENCYCLIDINE SCREEN NEGATIVE
[2019-05-09] MEDS: MORPHINE SULFATE 10 MG/ML INJ IV SCH ×2 (15:07→21:35)
[2019-05-09] MEDS: HEPARIN SOD (PORCINE) 5,000 UNIT/ML 1 ML VIAL SUBCUT SCH ×2 (15:07→21:36)
[2019-05-10] MEDS: NORMAL SALINE 1000 ML 1,000 ML IV SCH ×2 (00:05→02:05)
[2019-05-10] MEDS: MORPHINE SULFATE 10 MG/ML INJ IV SCH (05:28)
[2019-05-10] MEDS: HEPARIN SOD (PORCINE) 5,000 UNIT/ML 1 ML VIAL SUBCUT SCH (05:31)
[2019-05-10 05:35] LABS: ALBUMIN 2.4 g/dL (3.5-5.0); ALKALINE PHOSPHATASE 25 U/L (38-126); ANION GAP 13 (5-19); ASPARTATE AMINO TRANSFERASE 32 U/L (17-59); CALCIUM 8.1 mg/dL (8.4-10.2); CARBON DIOXIDE 20 mmol/L (22-30); CHLORIDE 101 mmol/L (98-107); CHOLESTEROL 107.93 mg/dL (0-200); GLUCOSE 107 mg/dL (75-110); POTASSIUM 3.3 mmol/L (3.6-5.0); TOTAL PROTEIN 4.2 g/dL (6.3-8.2); TRIGLYCERIDES 286 mg/dL (<150)
[2019-05-10 05:42] LABS: CREATINE KINASE MB 9.73 ng/mL (<4.55)
[2019-05-10 05:46] LABS: DIRECT LDL 50 mg/dL (<100)
[2019-05-10 06:13] LABS: BILIRUBIN,TOTAL < 0.1 mg/dL (0.2-1.3); VLDL CHOLESTEROL 57.2 mg/dL (10-31)
[2019-05-10 06:18] LABS: BLOOD UREA NITROGEN 137 mg/dL (7-20)
[2019-05-10] MEDS ORDERED: POTASSIUM CHLORIDE 10 MEQ TABLET.ER PO ONE (07:33)
[2019-05-10 08:00] VITALS: BP 94/75
[2019-05-10] MEDS: NORMAL SALINE 1000 ML 1,000 ML IV PRN (08:00)
[2019-05-10 08:10] LABS: MEAN CORPUSCULAR HGB CONC 32.5 g/dL (32.0-36.0); MEAN CORPUSCULAR VOLUME 74 fl (80-97); PLATELET COUNT 208 10^3/uL (150-450); RED BLOOD COUNT 1.73 10^6/uL (4.35-5.55); RED CELL DISTRIBUTION WIDTH 19.7 % (11.5-14.0); WHITE BLOOD COUNT 14.8 10^3/uL (4.0-10.5)
[2019-05-10] MEDS ORDERED: LORAZEPAM INJ 2 MG/1 ML VIAL ONE (08:12)
[2019-05-10 08:13] LABS: HEMATOCRIT 12.8 % (37.9-51.0); HEMOGLOBIN 4.2 g/dL (13.5-17.0)
--- NOTE | 2019-05-10 08:20 | RADIOLOGY REPORT (SQ) ---
EXAM DESCRIPTION: KUB/ABDOMEN (SINGLE VIEW) IMAGES COMPLETED DATE/TIME: 05/10/2019 8:04 am REASON FOR STUDY: n/v COMPARISON: Chest films 05/09/2019 CT abdomen pelvis 05/09/2019 NUMBER OF VIEWS: One view. TECHNIQUE: Supine radiographic image of the abdomen acquired. LIMITATIONS: Uppermost abdomen is cropped from the field of view. Unable to discern whether there i s a nasogastric tube present FINDINGS: BOWEL GAS PATTERN: Diffuse distention of the stomach persists. Gas and stool in the colon . No gross dilated small bowel loops CALCIFICATIONS: No suspicious calcifications. SOFT TISSUES: No gross mass or suggestion of organomegaly. HARDWARE: Sanchez catheter in the bladder BONES: No acute fracture. No worrisome bone lesions. OTHER: No other significant finding. IMPRESSION: Diffuse distention of the stomach at the upper edge of the field of view. Unable to dis cern from the film whether the patient has a nasogastric tube TECHNICAL DOCUMENTATION: JOB ID: [id number] 2010 [employer]- All Rights Reserved Reading location - IP/workstation name: [id number]
[2019-05-10 08:22] LABS: ABSOLUTE LYMPHOCYTES# (MANUAL) 3.1 10^3/uL (0.5-4.7); ABSOLUTE MONOCYTES # (MANUAL) 1.2 10^3/uL (0.1-1.4); BASOPHILS % (MANUAL) 0 % (0-2); EOSINOPHILS % (MANUAL) 0 % (0-6); LYMPHOCYTES % (MANUAL) 21 % (13-45); MONOCYTES % (MANUAL) 8 % (3-13); SEGMENTED NEUTROPHILS % (MAN) 71 % (42-78); TOTAL CELLS COUNTED 100
[2019-05-10 08:28] LABS: ANISOCYTOSIS 2+; HYPOCHROMASIA SLIGHT; PLATELET LARGE PRESENT
[2019-05-10 08:30] LABS: PLATELET COMMENT ADEQUATE
[2019-05-10] MEDS ORDERED: NORMAL SALINE 250 ML IV PRN ×2 (08:30)
[2019-05-10] MEDS ORDERED: PHARMACY COMMUNICATION ORDER MC NR (08:30)
[2019-05-10] MEDS ORDERED: POTASSI CL 20 MEQ/50 ML RIDER 20 MEQ/50 ML RTUPB IV ONE (08:32)
[2019-05-10] MEDS ORDERED: LORAZEPAM INJ 2 MG/1 ML VIAL IV PRN (08:33)
[2019-05-10] MEDS ORDERED: GLUCAGON,HUMAN RECOMB 1 MG INJ SUBCUT PRN (08:52)
[2019-05-10] MEDS ORDERED: DEXTROSE 40% GEL 15 GM TUBE PO PRN ×2 (08:52)
[2019-05-10] MEDS ORDERED: DEXTROSE 50%-WATER 25 GM/50 ML DISP.SYRIN IV PRN ×2 (08:52)
--- NOTE | 2019-05-10 08:52 | PDOC PROGRESS REPORT ---
Subjective Progress Note for:: 05/10/19 Subjective:: 33 year old male with history of depression, history of marijuana use came to the emergency room with complaints of stomach pains and lower leg weakness for the past 2 weeks. He also told me he is not eating well for the last 2 weeks. Denies any fevers denies any shortness of breath denies any headaches denies any falls denies any dizziness denies any nausea vomiting diarrhea. Complaining of decreased urinary output. Work-up in the ER indicates creatinine of 17 and CK 2670. Medical consult was called for SUNIL. Patient denies any drug use. Complaining of stomach pains requesting IV pain medications. Patient is also hypotensive in the ER. Plan to put him in IMCU for further management. Denies any suicidal ideations. 05/[id number]-old male admitted with complaints of unable to eat, nausea and vomitings and in acute renal failure on admission creatinine is more than 17. With IV fluids creatinine came down to 8.37 but hemoglobin dropped from 12.8-4.[address] scan of the abdomen and pelvis indicates gastric outlet obstruction surgical consult was requested. Patient is going to be n.p.o. and requested for 4 units of PRBC. To check posttransfusion CBC this evening. Patient will be kept n.p.o. Patient is agitated and confused started on IV Ativan 1 mg every 4 hours PRN for agitation. Sanchez's catheter was placed. Reason For Visit: SUNIL Physical Exam Vital Signs: Temp Pulse Resp BP Pulse Ox 98.1 F 81 24 H 94/75 L 89 L 05/10/19 07:12 05/10/19 07:12 05/10/19 07:12 05/10/19 07:12 05/10/19 07:12 Intake & Output 05/09/19 05/10/19 05/11/19 06:59 06:59 06:59 Intake Total 7240 Output Total 1100 Balance 6140 Weight 95.9 kg General appearance: PRESENT: other - Agitated and confused and combative. Head exam: PRESENT: atraumatic Eye exam: PRESENT: conjunctiva pale, PERRLA Ear exam: PRESENT: normal external ear exam Mouth exam: PRESENT: moist, tongue midline Teeth exam: PRESENT: poor dentation Neck exam: ABSENT: carotid bruit, JVD, lymphadenopathy, thyromegaly Respiratory exam: PRESENT: clear to auscultation riky. ABSENT: rales, rhonchi, wheezes Cardiovascular exam: PRESENT: RRR. ABSENT: diastolic murmur, rubs, systolic murmur Pulses: PRESENT: normal dorsalis pedis pul GI/Abdominal exam: PRESENT: normal bowel sounds, soft. ABSENT: distended, guarding, mass, organolmegaly, rebound, tenderness Rectal exam: PRESENT: deferred Extremities exam: PRESENT: full ROM. ABSENT: calf tenderness, clubbing, pedal edema Neurological exam: PRESENT: alert, awake, oriented to person, oriented to place, oriented to time, oriented to situation, CN II-XII grossly intact. ABSENT: motor sensory deficit Psychiatric exam: PRESENT: appropriate affect, normal mood. ABSENT: homicidal ideation, suicidal ideation Results Laboratory Results: 05/10/19 07:50 05/10/19 04:41 05/09/19 05/10/19 05/10/19 14:02 04:41 04:41 WBC Cancelled RBC Cancelled Hgb Cancelled Hct Cancelled MCV Cancelled MCH Cancelled MCHC Cancelled RDW Cancelled Plt Count Cancelled Seg Neutrophils % Cancelled Sodium 134.2 L Potassium 3.3 L Chloride 101 Carbon Dioxide 20 L Anion Gap 13 BUN 137 H D Creatinine 8.37 H Est GFR ( Amer) 9 L Glucose 107 Calcium 8.1 L Magnesium 1.9 Total Bilirubin < 0.1 L AST 32 Alkaline Phosphatase 25 L Total Protein 4.2 L Albumin 2.4 L Triglycerides 286 H Cholesterol 107.93 LDL Cholesterol Direct 50 VLDL Cholesterol 57.2 H HDL Cholesterol 20 L TSH Urine Color YELLOW Urine Appearance SLIGHTLY-CLOUDY Urine pH 5.0 Ur Specific [place] 1.019 Urine Protein 30 H Urine Glucose (UA) 50 H Urine Ketones NEGATIVE Urine Blood LARGE H Urine Nitrite NEGATIVE Ur Leukocyte Esterase TRACE H Urine WBC (Auto) 7 Urine RBC (Auto) 3 05/10/19 05/10/19 05/10/19 04:41 06:23 07:50 WBC Cancelled 14.8 H RBC Cancelled 1.73 L Hgb Cancelled 4.2 L* D Hct Cancelled 12.8 L* MCV Cancelled 74 L MCH Cancelled 24.0 L MCHC Cancelled 32.5 RDW Cancelled 19.7 H Plt Count Cancelled 208 Seg Neutrophils % Cancelled Not Reportable Sodium Potassium Chloride Carbon Dioxide Anion Gap BUN Creatinine Est GFR ( Amer) Glucose Calcium Magnesium Total Bilirubin AST Alkaline Phosphatase Total Protein Albumin Triglycerides Cholesterol LDL Cholesterol Direct VLDL Cholesterol HDL Cholesterol TSH 0.07 L Urine Color Urine Appearance Urine pH Ur Specific [place] Urine Protein Urine Glucose (UA) Urine Ketones Urine Blood Urine Nitrite Ur Leukocyte Esterase Urine WBC (Auto) Urine RBC (Auto) 05/09/19 05/09/19 05/09/19 07:08 07:08 11:10 Creatine Kinase 2670 H 2733 H CK-MB (CK-2) Troponin I 0.025 NT-Pro-B Natriuret Pep 05/09/19 05/09/19 05/10/19 11:10 14:02 04:41 Creatine Kinase 2252 H CK-MB (CK-2) 9.73 H Troponin I 0.018 NT-Pro-B Natriuret Pep 230 H Impressions: Abdomen/Pelvis CT 05/09/19 00:00 IMPRESSION: Isolated dilatation of stomach - correlate for gastric outlet obstruction. Chest X-Ray 05/09/19 00:00 IMPRESSION: NO ACUTE RADIOGRAPHIC FINDING IN THE CHEST. Renal Ultrasound 05/09/19 00:00 IMPRESSION: Small left renal cyst. No other significant findings. KUB X-Ray 05/10/19 00:00 IMPRESSION: Diffuse distention of the stomach at the upper edge of the field of view. Unable to discern from the film whether the patient has a nasogastric tube Assessment and Plan - Diagnosis (1) SUNIL (acute kidney injury) Is this a current diagnosis for this admission?: Yes Plan: 05/09/2019-patient is going to be admitted to [facility] with a diagnosis of SUNIL. Previous creatinine is 1.49. Patient is going to be inpatient started on IV fluids normal saline at 250 cc/h. To hold gabapentin at this time. GI prophylaxis DVT prophylaxis initiated started on IV morphine for pain. Check the labs tomorrow. 05/10/2019-patient admitted with acute renal failure most likely secondary to prerenal causes with IV fluids creatinine improved from 17 to -8.37. Still hypotensive. Plan is to continue IV fluids normal saline at 250 cc/h. To recheck the labs tomorrow. (2) Acute drug overdose Is this a current diagnosis for this admission?: Yes Plan: 05/09/2019 patient is taking gabapentin for leg pains as per the ER physician on the patient he took extra medications or extra doses of unknown number. It may be a contributing factor for SUNIL. 05/10/19-patient admitted with taking extra dose of gabapentin. Urine drug screen is negative. Patient was started on Ativan 1 mg IV every 4 PRN for agitation. (3) Rhabdomyolysis Is this a current diagnosis for this admission?: Yes Plan: 05/09/2019-CK is 2670. Rhabdomyolysis may be secondary to drug overdose. Started on IV fluids to 50 cc/h to recheck the labs tomorrow. 05/10/2019-latest CK is 2252. Improving. Plan is to continue IV fluids normal saline at to 50 cc/h. (4) Elevated troponin I level Is this a current diagnosis for this admission?: Yes Plan: 05/09/2019 patient admitted with elevated troponin of 0.025. It may be secondary to type II myocardial ischemia. To repeat the troponin levels later on this evening. Denies any chest pains. 05/10/2019-on admission troponins are slightly elevated no complaints of chest pain during the hospital stay. latest troponin is 0.018. Elevated troponins most likely secondary to acute renal failure. (5) Hyponatremia Is this a current diagnosis for this admission?: Yes Plan: 05/10/2019-patient admitted with serum sodium of 130 with IV fluids it improved to 134. Hyponatremia is resolving. (6) Hyponatremia Is this a current diagnosis for this admission?: Yes (7) Acute encephalopathy Is this a current diagnosis for this admission?: Yes Plan: 05/10/2019-on examination this morning patient is agitated and confused. Altered mental status may be secondary to acute anemia and acute renal failure. (8) Hypokalemia Is this a current diagnosis for this admission?: Yes Plan: 05/10/2019-serum potassium today is 3.3 to give 20 mg of IV potassium today. (10) Acute blood loss anemia Is this a current diagnosis for this admission?: Yes Plan: 05/10/2019-patient came in with hemoglobin of more than 12 and it dropped to 4.2 today. Repeat lab indicates hemoglobin around 4.2. To give 4 units of blood transfusion and to recheck the labs tomorrow. Patient may have a gastric ulcer CT scan indicates gastric outlet obstruction. Surgical consult was requested patient may go for EGD. Patient is going to be n.p.o.
--- NOTE | 2019-05-10 09:37 | PDOC CONSULTATION ---
Consultation Consult Date: 05/10/19 Attending physician:: CLEMENTE MCKEON Provider Consulted: JEANETH DILLON Consult reason:: Gastric outlet obstruction History of Present Illness Admission Date/PCP: 05/09/19 09:14 [facility] History of Present Illness: LISA MEJIAS is a 33 year old male Patient admitted to the medical service for evaluation of abdominal pain, and leg weakness. He is hypertensive in the emergency department found to be massively dehydrated. Patient has a history of schizophrenia. Patient was resuscitated with fluids, and had imaging studies occluding CT scan of the abdomen and pelvis without oral and without IV contrast which showed gastric o utlet obstruction. Surgery was consulted. Past Medical History Cardiac Medical History: Reports: Hypertension - Elevated blood pressure without specific diagnosis of hypertension. Denies: Atrial Fibrillation, Congestive Heart Failure, DVT, Myocardial Infar ction, Hyperlipidema, Pulmonary Embolism Pulmonary Medical History: Denies: Asthma, Chronic Obstructive Pulmonary Disease (COPD), Sleep Apnea Neurological Medical History: Reports: Migraine, Seizures - seizure r/t lyte imbalance Endocrine Medical History: Denies: Diabetes Mellitus Type 1, Diabetes Mellitus Type 2, Hyperthyroidism, Hypothyroidism GI Medical History: Reports: Gastroesophageal Reflux Disease - Mild Denies: Cirrhosis, Hepatitis Musculoskeltal Medical History: Denies: Arthritis Psychiatric Medical History: Reports: Depression, Schizoaffective Disorder Past Surgical History Past Surgical History: Reports: None Social History Smoking Status: Current Some Day Smoker Electronic Cigarette use?: No Frequency of Alcohol Use: Occasional Hx Recreational Drug Use: Yes Drugs: None Hx Prescription Drug Abuse: Yes - Suspected Xanax overdose - Advance Directive Resuscitation Status: Full Code Family History Family History: None, Reviewed & Not Pertinent Parental Family History Reviewed: No Children Family History Reviewed: No Sibling(s) Family History Reviewed.: No Medication/Allergy Home Medications: Gabapentin [Neurontin 300 mg Capsule] 800 mg PO Q8H PRN 08/21/18 Quetiapine Fumarate 400 mg PO QHS 08/21/18 Quetiapine Fumarate [Seroquel] 100 mg PO DAILY 08/21/18 Allergies/Adverse Reactions: No Known Allergies Allergy (Verified 10/03/18 15:25) Review of Systems ROS unobtainable: Due to mental status, Other - Patient combative, agitated, unable to obtain history Physical Exam Vital Signs: Temp Pulse Resp BP Pulse Ox 98.1 F 81 24 H 94/75 L 89 L 03/28/20 07:12 05/10/19 07:12 05/10/19 07:12 05/10/19 07:12 05/10/19 07:12 Intake & Output 05/09/19 05/10/19 05/11/19 06:59 06:59 06:59 Intake Total 8240 Output Total 1100 Balance 7140 Weight 95.9 kg General appearance: PRESENT: other - Very agitated GI/Abdominal exam: PRESENT: other - Abdomen soft, not distended; difficult to examine due to agitation Results Laboratory Results: 05/10/19 07:50 05/10/19 04:41 05/09/19 05/10/19 05/10/19 14:02 04:41 04:41 WBC Cancelled RBC Cancelled Hgb Cancelled Hct Cancelled MCV Cancelled MCH Cancelled MCHC Cancelled RDW Cancelled Plt Count Cancelled Seg Neutrophils % Cancelled Sodium 134.2 L Potassium 3.3 L Chloride 101 Carbon Dioxide 20 L Anion Gap 13 BUN 137 H D Creatinine 8.37 H Est GFR ( Amer) 9 L Glucose 107 Calcium 8.1 L Magnesium 1.9 Total Bilirubin < 0.1 L AST 32 Alkaline Phosphatase 25 L Total Protein 4.2 L Albumin 2.4 L Triglycerides 286 H Cholesterol 107.93 LDL Cholesterol Direct 50 VLDL Cholesterol 57.2 H HDL Cholesterol 20 L TSH Urine Color YELLOW Urine Appearance SLIGHTLY-CLOUDY Urine pH 5.0 Ur Specific [place] 1.019 Urine Protein 30 H Urine Glucose (UA) 50 H Urine Ketones NEGATIVE Urine Blood LARGE H Urine Nitrite NEGATIVE Ur Leukocyte Esterase TRACE H Urine WBC (Auto) 7 Urine RBC (Auto) 3 05/10/19 05/10/19 05/10/19 04:41 06:23 07:50 WBC Cancelled 14.8 H RBC Cancelled 1.73 L Hgb Cancelled 4.2 L* D Hct Cancelled 12.8 L* MCV Cancelled 74 L MCH Cancelled 24.0 L MCHC Cancelled 32.5 RDW Cancelled 19.7 H Plt Count Cancelled 208 Seg Neutrophils % Cancelled Not Reportable Sodium Potassium Chloride Carbon Dioxide Anion Gap BUN Creatinine Est GFR ( Amer) Glucose Calcium Magnesium Total Bilirubin AST Alkaline Phosphatase Total Protein Albumin Triglycerides Cholesterol LDL Cholesterol Direct VLDL Cholesterol HDL Cholesterol TSH 0.07 L Urine Color Urine Appearance Urine pH Ur Specific [place] Urine Protein Urine Glucose (UA) Urine Ketones Urine Blood Urine Nitrite Ur Leukocyte Esterase Urine WBC (Auto) Urine RBC (Auto) 05/09/19 05/09/19 05/09/19 07:08 07:08 11:10 Creatine Kinase 2670 H 2733 H CK-MB (CK-2) Troponin I 0.025 NT-Pro-B Natriuret Pep 05/09/19 05/09/19 05/10/19 11:10 14:02 04:41 Creatine Kinase 2252 H CK-MB (CK-2) 9.73 H Troponin I 0.018 NT-Pro-B Natriuret Pep 230 H Impressions: Abdomen/Pelvis CT 05/09/19 00:00 IMPRESSION: Isolated dilatation of stomach - correlate for gastric outlet obstruction. Chest X-Ray 05/09/19 00:00 IMPRESSION: NO ACUTE RADIOGRAPHIC FINDING IN THE CHEST. Renal Ultrasound 05/09/19 00:00 IMPRESSION: Small left renal cyst. No other significant findings. KUB X-Ray 05/10/19 00:00 IMPRESSION: Diffuse distention of the stomach at the upper edge of the field of view. Unable to discern from the film whether the patient has a nasogastric tube Assessment & Plan - Diagnosis (1) Gastric outlet obstruction Is this a current diagnosis for this admission?: Yes Plan: Impression: Clinical and radiographic findings suggestive of gastric outlet obstruction. This may be functional or structural. Other multiple medical problems including dehydration, anemia, acute renal failure being addressed t [place] by internal medicine service Recommendations: 1. Insertion of large bore nasogastric tube for gastric decompression 2. Continue resuscitation; patient will need blood transfusion. 3. Once patient stabilizes, will perform upper endoscopy, possible biopsies. (2) SUNIL (acute kidney injury) Is this a current diagnosis for this admission?: Yes (3) Rhabdomyolysis Is this a current diagnosis for this admission?: Yes (4) Nausea and vomiting Is this a current diagnosis for this admission?: Yes (5) Schizoaffective disorder Qualifiers: Schizoaffective disorder type: unspecified Qualified Code(s): F25.9 - Schizoaffective disorder, unspecified - Time Time Spent: 30 to 50 Minutes
[2019-05-10] MEDS ORDERED: SODIUM BICARBONATE 8.4% INJ 50 MEQ/50 ML DISP.SYRIN ONE ×3 (09:50→11:30)
[2019-05-10] MEDS ORDERED: CALCIUM GLUCONATE 1000 MG/10 ML INJ IV ONE (09:51)
[2019-05-10] MEDS ORDERED: ATROPINE SULFATE INJ 1 MG/10 ML DISP.SYRIN IV ONE ×2 (09:53→11:30)
--- NOTE | 2019-05-10 10:30 | ER Document Report ---
Entered by MARIUM STACK SCRIBE 05/09/19 0710 Acting as scribe for:GALE KINNEY MD ED General - General Chief Complaint: Possible Overdose Stated Complaint: POSSIBLE OVERDOSE Information source: Patient, Emergency Med Personnel Notes: This 33 year old male patient presents to the emergency department today with ch est pain and tingling in both of his feet. EMS at bedside and states the mother thinks he had a possible overdose. EMS states the patient is taking Gabapentin, but counted the pills and there was a normal amount missing since the last refill. EMS states prior to their arrival, the patient was sitting down before he began shaking and having possible syncopal episodes. Patient states he is not taking any medication for hypertension. When the patient's lab work began coming back, it showed the patient was quite dehydrated and going into renal failure. He reports that he stopped drinking fluids because he was having brown liquid diarrhea all the time for the past week. TRAVEL OUTSIDE OF THE [place] IN LAST 30 DAYS: No - Related Data Allergies/Adverse Reactions: No Known Allergies Allergy (Verified 10/03/18 15:25) Past Medical History - General Information source: Patient - Social History Smoking Status: Current Every Day Smoker Cigarette use (# per day): Yes Family History: None, Reviewed & Not Pertinent - Past Medical History Cardiac Medical History: Reports: Hx Hypertension Pulmonary Medical History: Reports: Hx Sleep Apnea Neurological Medical History: Reports: Hx Migraine, Hx Seizures - seizure r/t lyte imbalance GI Medical History: Reports: Hx Gastroesophageal Reflux Disease - Mild Musculoskeletal Medical History: Reports Hx Musculoskeletal Trauma - collar bone Psychiatric Medical History: Reports: Hx Anxiety, Hx Depression, Hx Schizoaffective Disorder, Hx Schizophrenia Traumatic Medical History: Reports: Hx Fractures - Immunizations Immunizations up to date: Yes Hx Diphtheria, Pertussis, Tetanus Vaccination: Yes Review of Systems - Review of Systems Constitutional: No symptoms reported EENT: No symptoms reported Cardiovascular: See HPI, Chest pain, Syncope Respiratory: No symptoms reported Gastrointestinal: See HPI Genitourinary: No symptoms reported Male Genitourinary: No symptoms reported Musculoskeletal: No symptoms reported Skin: No symptoms reported Hematologic/Lymphatic: No symptoms reported Neurological/Psychological: See HPI, Tingling - Both feet. Physical Exam - Vital signs Vitals: Resp 26 H 05/09/19 07:01 - General General appearance: Appears well, Alert - HEENT Head: Normocephalic, Atraumatic Eyes: Normal Pupils: PERRL Mouth/Lips: Other - Thickened saliva. Mucous membranes: Dry - Respiratory Respiratory status: No respiratory distress Chest status: Nontender Breath sounds: Normal Chest palpation: Normal - Cardiovascular Rhythm: Tachycardia Heart sounds: Normal auscultation Murmur: No - Abdominal Inspection: Normal Distension: No distension Bowel sounds: Normal Tenderness: Nontender - Extremities General upper extremity: Normal inspection. No: Edema General lower extremity: Normal inspection. No: Edema - Neurological Neuro grossly intact: Yes Cognition: Normal Orientation: AAOx4 - Psychological Associated symptoms: Normal affect, Normal mood - Skin Skin Temperature: Warm Skin Moisture: Dry Skin Color: Normal Course - Vital Signs Vital signs: Temp Pulse Resp BP Pulse Ox 98.7 F 110 H 15 118/63 96 05/09/19 07:03 05/09/19 07:03 05/09/19 11:15 05/09/19 11:15 05/09/19 11:15 - Laboratory Result Diagrams: 05/09/19 07:08 05/09/19 07:08 Laboratory results interpreted by me: 05/09/19 05/09/19 07:08 07:08 WBC 17.4 H Hgb 11.4 L Hct 34.8 L MCV 71 L MCH 23.3 L RDW 19.4 H Lymph % (Auto) 5.9 L Absolute Neuts (auto) 14.6 H Absolute Monos (auto) 1.7 H Seg Neutrophils % 84.0 H Sodium 131.8 L Chloride 76 L Anion Gap 30 H BUN 98 H Creatinine 17.84 H Est GFR ( Amer) 4 L Est GFR (MDRD) Non-Af 3 L Calcium 11.3 H Direct Bilirubin 0.5 H AST 63 H Creatine Kinase 2670 H - EKG Interpretation by Sc EKG shows normal: Sinus rhythm, [place], QRS Complexes, ST-T Waves. abnormal: Intervals - Borderline prolonged QT interval Rate: Tachycardia - 113 Rhythm: NSR - Consults Dr. Patton Time consulted: 08:18 Consulted provider: will come to ER Critical Care Note - Critical Care Note Total time excluding time spent on procedures (mins): 45 Discharge - Discharge Clinical Impression: Dehydration Schizoaffective disorder Qualifiers: Schizoaffective disorder type: unspecified Qualified Code(s): F25.9 - Schizoaffective disorder, unspecified Acute renal failure Qualifiers: Acute renal failure type: unspecified Qualified Code(s): N17.9 - Acute kidney failure, unspecified Rhabdomyolysis Qualifiers: Rhabdomyolysis type: non-traumatic Qualified Code(s): M62.82 - Rhabdomyolysis Condition: Fair Disposition: ADMITTED INPATIENT Admitting Provider: Pooja (Hospitalist) Unit Admitted: IMCU I personally performed the services described in the documentation, reviewed and edited the documentation which was dictated to the scribe in my presence, and it accurately records my words and actions.
[2019-05-10] MEDS ORDERED: EPINEPHRINE INJ 1 MG/10 ML DISP.SYRIN ONE (11:30)
--- NOTE | 2019-05-10 12:16 | Death Summary ---
Summary Date : 05/10/19 Time of :: 09:56 Autopsy: Yes - Pending Resuscitation Status: Full Code - Final Diagnosis (2) SUNIL (acute kidney injury) Is this a current diagnosis for this admission?: Yes (3) Acute drug overdose Is this a current diagnosis for this admission?: Yes (4) Rhabdomyolysis Is this a current diagnosis for this admission?: Yes (5) Elevated troponin I level Is this a current diagnosis for this admission?: Yes (6) Hyponatremia Is this a current diagnosis for this admission?: Yes (7) Hyponatremia Is this a current diagnosis for this admission?: Yes (8) Acute encephalopathy Is this a current diagnosis for this admission?: Yes (9) Hypokalemia Is this a current diagnosis for this admission?: Yes Hospital Course:: 33-year-old male admitted with possible drug overdose, stomach pains and leg weakness. Time of my examination in the ER he was severely dehydrated and in acute renal failure associated with hyponatremia. Patient's CK levels are elevated at the time of admission. He was admitted to [facility] started on IV fluids at 250 cc/h and CT abdomen pelvis was requested. CT abdomen pelvis indicates possible gastric outlet obstruction. Patient denies any nausea vomitings at the time of admission. This morning during my examination patient was confused and agitated. Hemoglobin report just came back as 4.2, 4 units of PRBC requested stat and surgical consult was requested and Dr. Cleveland and me to get her examined the patient decided to keep him n.p.o., to put NG tube placement give blood transfusions and to give IV fluids once stable to arrange for EGD. Later on around 9:25 AM the nurse chinese medicine practitioner tried to put an NG tube suddenly patient has profound episode of vomiting with coffee colored material. He is also started passing black melanotic stools. Rapid response was called because patient unresponsive. Found to be in asystole and with pulseless electrical activity. Promptly CPR was initiated several doses of atropine, AP and IV bicarb was given. Patient was promptly intubated. The code was unsuccessful after 30 minutes with no return of Rosc,. Patient was declared at 9:56 AM. Patient's case will be referred to medical policy specialist for autopsy. Family is notified about patient's . The code was supervised by Dr. Munguia. Patient was declared by Dr. Munguia at 9:56 AM.
[2019-05-12 13:12] LABS: PATH REVIEW PATHOLOGIST REVIEWED
== END 2019-05-10 12:15 | disposition left against medical advice (07) | DRG 918 ==
LOC: ER 06:59 → EH 09:14 → 3S 14:15
PROVIDERS: ADMIT Internal Medicine; ATTEND Internal Medicine
DX: T42.6X1A Poisoning by other antiepileptic and sedative-hypnotic drugs, accidental (unintentional), initial encounter (principal); N17.9 Acute kidney failure, unspecified; M62.82 Rhabdomyolysis; E87.1 Hypo-osmolality and hyponatremia; G93.40 Encephalopathy, unspecified; D62 Acute posthemorrhagic anemia; I95.9 Hypotension, unspecified; E86.0 Dehydration; E87.6 Hypokalemia; K21.9 Gastro-esophageal reflux disease without esophagitis; I10 Essential (primary) hypertension; F20.9 Schizophrenia, unspecified; F17.210 Nicotine dependence, cigarettes, uncomplicated; Y92.018 Other place in single-family (private) house as the place of occurrence of the external cause
CPT/HCPCS: 36415; 71046; 74018; 74176; 76770; 80053; 80061; 80307; 81001; 82550; 82553; 82803; 83036; 83735; 83880; 84443; 84484; 85025; 86850; 86900; 86901; 86920; 92950; 93005; 93010; 96360; 96361; 99291; C9113; J0171; J0461; J1644; J2060; J2270; J3490; J7030